=== PATIENT | female | born 1950 | race Caucasian/White ===

== ENCOUNTER 2016-07-29 18:32 | Emergency (ER) | payer MEDICARE ==
[~2016-07-29] VITALS: Ht 156.2 cm; Wt 82.6 kg
[~2016-07-29 18:32] MED LIST: ADVIL 200MG TA200 MG OR; ALPRAZOLAM1 MG PO; ASPIR-LOW81 MG PO; ATIVAN1 M1 PO; BACTRIM DS 8001 TA1 PO; BACTRIM DS 8001 TAB PO; BACTROBAN2% TP; BACTROBAN23 TP; BUPRENORPHINE H1 TA2 SL; CALCIUM GLUCONA50 MG PO; CARVEDILOL6.25 MG PO; CELEXA20 MG PO; CLONAZEPAM0.5 M1 PO; CYMBALTA30 MG PO; FSBS SC; IMDUR 30MG. TAB30 MG PO; INSULIN GL100 UNITS/ SC; INSULIN HUMA100 U/ML SC; KEFLEX 500MG.500 MG PO; KEFLEX500 M1 PO; LISINOPRIL 20MG20 MG PO; LORTAB 5/500 501 TAB PO; METFORMIN 500M500 M1 PO; METFORMIN500 MG PO; NEURONTIN 300M300 MG PO; NICOTINE PATCH;21 MG TD; NORCO 325 MG-51 TAB PO; NOVOLIN 70/30 710 ML SC; OXYCODONE AND A1 TA5 PO; PERCOCET 10 MG1 EACH PO; PERCOCET 325 MG1 TA3 PO; PERCOGESIC EXTR1 TAB PO; PRAVACHOL 40MG40 MG PO; ROZEREM8 MG PO; SEPTRA DS 800 M1 TAB PO; TRAMADOL 50MG T50 MG PO; ULTRAM50 MG PO; VALIUM 5MG TABLE5 MG PO; XANAX 1MG TABLET1 MG PO
--- NOTE | 2016-07-29 18:49 | Emergency Room Report ---
History of Present Illness Time Seen by MD Bauer Presenting Problem in Triage Pt arrived:Walked Presenting Problem:STATES THAT SHE HAS BEEN HAVING ANXIETY ATTACKS LATELY, HER SUGAR IS HIGH. AND SHE HAS SORES ON HER HAND. 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 N Clinical Suspician of Infection? N Mental Status: 1 - Regular (Normal Baseline) Sepsis Risk:Low Sepsis Risk Have you (or family members/close friends) recently traveled outside the [place]? N If Yes, where/when: Have you had exposure to infectious disease within the past month? N TB? Other? Specify: Source patient, RN notes reviewed Exam Limitations no limitations Comment This is a 65-year-old female with a past medical history significant for anxiety , hypertension, hyperlipidemia, diabetes mellitus, coronary artery disease and medication noncompliance who presents to the emergency department for panic attacks. She states that she has them daily and had one today because she constantly worries about her health. She says that her panic attacks make her nervous and she begins picking at her hands causing her to have sores on her hands and forearms. She thinks that her glucose has been elevated as well and complains of increased urinary frequency over the last several days. She does not endorse having any chest pain, shortness of air, lightheadedness, syncope. Of note, she was just discharged from the hospital several days ago. ALLERGIES Coded Allergies: ibuprofen (From MOTRIN) (09/17/15) Home Medications Active Scripts MUPIROCIN 2% (Bactroban Oint) 1 BENNETT TP TID #1 TUBE Prov: 02/19/16 ISOSORBIDE MONONITRATE (IMDUR 30MG) 30 MG PO DAILY 30 Days Prov: 07/24/16 PRAVASTATIN SODIUM (Pravastatin Sodium) 40 MG PO QHS #30 TAB Prov: 02/24/15 Carvedilol (Carvedilol 6.25MG) 6.25 MG PO BID #60 TAB Prov: 02/24/15 Reported Medications INSULIN NPH HUM/REG INSULIN HM (Novolin 70-30 100 Unit/Ml Vial) 40 UNITS SC BID Aspirin (Aspir-Low) 81 MG PO DAILY BUPRENORPHINE HCL/NALOXONE HCL (Buprenorphin-Naloxon 8-2 MG Sl) 1 TAB SL DAILY LISINOPRIL (Lisinopril) 20 MG PO DAILY History Medical History General CAD? Yes Angina: No OK: Yes Hypertension? Yes Hyperlipidemia? Yes CHF? No DVT? No PE? No COPD? Yes Asthma? No Anemia? Yes GERD? Yes Gastric ulcers? No GI Bleed? No Hernia? No Thyroid Problems? Yes Hypothyroidism? Yes CVA? No Seizures? No Diabetes? Yes Insulin Dependent: Yes Insulin Pump: No Home FSBS? Yes Renal Insuffiency? No End Stage Renal Disease? No UTI? Yes Stones? No BPH? No GB Disease: No Nephritic Syndrome? No Asplenia? No Hepatitis? No Sickle Cell Disease? No Arthritis? Yes Migraines? Yes Cataracts? Yes Glaucoma? No MRSA? No HIV? No TB? No Anxiety? Yes Depression? Yes Cancer? No More? Yes Additional hx: X Immunization Hx Ped.Immunizations UTD Yes DT/Tetanus Has Never Had Flu 2016-17FSN Pneumonia Received In Past Surgical Hx Previous Surgery?Y GALLBLADDER Coronary Artery Bypass Family History Family Hx Diabetes Yes CAD Yes Hypertension Yes Hyperlipidemia Yes Cancer Yes TB Yes Social History Smoking Hx Smoker: Never Smoker Tobacco: No Packs/day N/A Are you/the child exposed to second-hand smoke: Yes Alcohol Alcohol: No Review of Systems All Other Systems Reviewed and Negative Physical Exam Vital Signs Vital Signs Date Time Temp Pulse Resp B/P Pulse O2 O2 Flow FiO2 Ox Delivery Rate 07/29 1838 98.5 89 18 114/74 98 General Appearance normal appearance, WD/WN Neck normal inspection, non-tender, supple, full range of motion Respiratory Status Yes: chest symmetrical, non tender chest. No: respiratory distress. Lung Sounds bilateral: normal breath sounds, lungs clear. Cardiovascular normal exam, regular rate/rhythm, no peripheral edema, no gallop, no JVD, no murmur, no rub, normal peripheral pulses Back normal inspection, no CVA tenderness, no vertebral tenderness Extremities non-tender, normal range of motion Neurologic alert, no motor/sensory deficits, oriented x 3 Skin intact, normal color, warm/dry, scars on bilateral hands/wrists with no signs of cellulitis, abscess Medical Decision Making LABS/Meds/Orders Pt receiving controlled substance in ED? No Results/Orders Laboratory Tests 07/29/161909: Sodium 135 L, Potassium 4.5, Chloride 101, Carbon Dioxide 30, BUN 13, Creatinine 0.5 L, Estimated Creat Clear 146, Estimated GFR (MDRD) 124, Glucose 330 H, Calcium 8.5, Total Bilirubin 0.2, AST 5 L, ALT 14, Alkaline Phosphatase 95, Total Protein 7.0, Albumin 2.9 L, Globulin 4.1 H, Albumin/Globulin Ratio 0.7 L, WBC 5.3, RBC 4.05 L, Hgb 10.4 L, Hct 34.3 L, MCV 84.6, RDW 15.4, Plt Count 312, MPV 9.2, Gran % 50.0, Gran # 2.7, Lymphocytes % 39.3, Monocytes % 6.2 , Eosinophils % 3.9, Basophils % 0.6, Lymphocytes # 2.1, Monocytes # 0.3, Eosinophils # 0.2, Basophils # 0.0, PUBS MCHC 30.4 L, MCH 25.7 L, Acetone Level NONE DETECTED 07/29/161848: POC Glucose 389 *H 07/29/161844: Urine Color YELLOW, Urine Appearance CLEAR, Urine pH 6.0, Ur Specific [place] 1.015, Urine Protein NEGATIVE, Urine Ketones NEGATIVE, Urine Blood NEGATIVE, Urine Nitrate NEGATIVE, Urine Bilirubin NEGATIVE, Urine Urobilinogen 0.2, Ur Leukocyte Esterase NEGATIVE, Urine RBC 3-5, Urine WBC 3-5, Ur Squamous Epith Cells 3-5, Urine Bacteria TRACE, Urine Glucose 3+ H Current Medication Orders Sig/Marcia Start time Last Medication Dose Route Stop Time Status Admin Insulin Human Regular 0 .STK-MED ONE 07/29 1902 DC .ROUTE Sodium Chloride 1,000 ML .STK-MED ONE 07/29 1901 DC IV Insulin Human Regular 10 UNITS ONCE ONE 07/29 1899 DC 07/29 IVP 07/29 1900 190 Sodium Chloride 1,000 ML .Q1H1M 07/29 1899 DC 07/29 IV 07/29 Sodium Chloride 10 ML PRN PRN 07/29 1899 AC IV 07/30 1854 Orders Procedure Date/time Status CBC WITH AUTO DIFF 07/29 1855 Complete CHEM 12 PROFILE 07/29 1855 Complete Acetone, Serum 07/29 1855 Complete FINGERSTICK BLOOD SUGAR 07/29 1848 Complete URINALYSIS/COMPLETE 07/29 1842 Complete Departure Departure Disposition DC Home or Self Care(routine) Clinical Impression Primary Impression: Hyperglycemia Secondary Impressions: Anxiety Condition STABLE Referrals Ajay Cooper (Family) Additional Instructions Continue to reassess your blood sugar every 2-3 hours and use sliding scale insulin if needed. Up with your primary care provider in one to 2 days for reevaluation. Return to the emergency department for any acute new concerns. ED Critical Care Critical Care No Comments Patient here with hyperglycemia which may be secondary to her chronic history of noncompliance, though she does state that she took her insulin today as prescribed. She states her baseline is in the 230 range. Her glucose improves from 389 to 307 with a liter of fluids and 10 units of insulin IV. She can continue to improve this at home with her sliding scale insulin. She exhibits no symptoms consistent with DKA. I suspect that her hyperglycemia is likely the source of her increased urinary frequency. Her anxiety is well controlled here and she is not tachycardic or hypertensive. We will discharge her home to follow up outpatient with her primary care provider within 1-2 days. No leukocytosis or fever to suggest infectious etiology of her anxiety. Urinalysis negative for UTI. She does not have any chest pain. at 2004
[2016-07-29 18:54] LABS: URINE BILIRUBIN - DIPSTICK NEGATIVE (NEG); URINE BLOOD NEGATIVE (NEG)
[2016-07-29 19:41] LABS: HEMOGLOBIN 10.4 g/dL (12.2-16.2); LYMPH # 2.1 K/mm3 (0.7-4.5); LYMPH % 39.3 % (10-50.0)
[2016-07-29 19:56] LABS: BUN 13 mg/dL (7-18); GFR (ESTIMATED) 124 ML/MIN (59-)
[2016-07-29 20:30] VITALS: BP 125/79
[2016-09-15] MEDS ORDERED: AUGMENTIN 875-1 EACH PO (20:30)
[2016-09-16] MEDS ORDERED: ZITHROMAX Z-PA250 M2 PO (17:21)
== END 2016-07-29 20:30 | disposition home or self-care (01) ==
LOC: ER 18:32
PROVIDERS: Emergency Medicine
DX: E11.65 Type 2 diabetes mellitus with hyperglycemia (principal); Z79.4 Long term (current) use of insulin; F41.8 Other specified anxiety disorders; I10 Essential (primary) hypertension; J44.9 Chronic obstructive pulmonary disease, unspecified; K21.9 Gastro-esophageal reflux disease without esophagitis

== ENCOUNTER 2016-08-10 16:36 | Emergency (ER) | payer MEDICARE ==
[~2016-08-10] VITALS: Ht 156.2 cm; Wt 81.6 kg
[2016-08-10 17:09] LABS: URINE BILIRUBIN - DIPSTICK NEGATIVE (NEG); URINE BLOOD NEGATIVE (NEG)
--- NOTE | 2016-08-10 17:15 | Emergency Room Report ---
History of Present Illness Time Seen by [id number] Presenting Problem in Triage Pt arrived:Walked Presenting Problem:Pt reports that she fell a couple of days ago and hurt her stomach. Wound noted to pts R abdomen, pt reports that this is a result of falling a couple months ago. Pt reports that she also has severe anxiety and depression. 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 N Clinical Suspician of Infection? N Mental Status: 1 - Regular (Normal Baseline) Sepsis Risk:Low Sepsis Risk Have you (or family members/close friends) recently traveled outside the [place]? N If Yes, where/when: Have you had exposure to infectious disease within the past month? N TB? Other? Specify: Source patient, RN notes reviewed, RN/MD Exam Limitations no limitations Comment This is a 65-year-old female patient well known to me, presenting to the emergency room with multiple and various complaints, including chronic low back pain, hurting "all over", anxiety, dizziness, depression. Patient stated that she has fallen a few months ago and aggravated her low back condition. However she is already on narcotics and she is already seen at the local pain clinic. The patient denies any neurological deficit, any saddle anesthesia, any incontinence. ALLERGIES Coded Allergies: ibuprofen (From MOTRIN) (09/17/15) Home Medications Active Scripts MUPIROCIN 2% (Bactroban Oint) 1 BENNETT TP TID #1 TUBE Prov: 02/19/16 ISOSORBIDE MONONITRATE (IMDUR 30MG) 30 MG PO DAILY 30 Days Prov: 07/24/16 PRAVASTATIN SODIUM (Pravastatin Sodium) 40 MG PO QHS #30 TAB Prov: 02/24/15 Reported Medications Aspirin (Aspir-Low) 81 MG PO DAILY BUPRENORPHINE HCL/NALOXONE HCL (Buprenorphin-Naloxon 8-2 MG Sl) 1 TAB SL DAILY INSULIN NPH HUM/REG INSULIN HM (Novolin 70-30 100 Unit/Ml Vial) 50 UNITS SC BID History Medical History General CAD? Yes Angina: No IN: Yes Hypertension? Yes Hyperlipidemia? Yes CHF? No DVT? No PE? No COPD? Yes Asthma? No Anemia? Yes GERD? Yes Gastric ulcers? No GI Bleed? No Hernia? No Thyroid Problems? Yes Hypothyroidism? Yes CVA? No Seizures? No Diabetes? Yes Insulin Dependent: Yes Insulin Pump: No Home FSBS? Yes Renal Insuffiency? No End Stage Renal Disease? No UTI? Yes Stones? No BPH? No GB Disease: No Nephritic Syndrome? No Asplenia? No Hepatitis? No Sickle Cell Disease? No Arthritis? Yes Migraines? Yes Cataracts? Yes Glaucoma? No MRSA? No HIV? No TB? No Anxiety? Yes Depression? Yes Cancer? No More? No Immunization Hx DT/Tetanus Has Never Had Flu 2016-17FSN Pneumonia Received In Past Surgical Hx Previous Surgery?Y GALLBLADDER Coronary Artery Bypass Family History Family Hx Diabetes Yes CAD Yes Hypertension Yes Hyperlipidemia Yes Cancer Yes TB Yes Social History Smoking Hx Smoker: Never Smoker Tobacco: No Packs/day N/A Alcohol Alcohol: No Review of Systems All Other Systems Reviewed and Negative Musculoskeletal back pain Physical Exam Vital Signs Vital Signs Date Time Temp Pulse Resp B/P Pulse O2 O2 Flow FiO2 Ox Delivery Rate 08/10 1810 97 18 126/77 97 08/10 1802 97 18 126/77 97 08/10 1644 98.1 91 18 155/92 100 General Appearance normal appearance, WD/WN, no apparent distress Respiratory Status Yes: trachea midline, chest symmetrical, non tender chest. No: respiratory distress. Lung Sounds bilateral: normal breath sounds, lungs clear. Cardiovascular normal exam, regular rate/rhythm, no peripheral edema, no gallop, no JVD, no murmur, no rub, normal peripheral pulses Peripheral Pulses Pulses normal Yes Gastrointestinal normal bowel sounds, normal exam, non tender, soft, no organomegaly Back normal inspection, no CVA tenderness, no vertebral tenderness, gait normal, muscle spasm Extremities non-tender, normal range of motion, normal inspection Neurologic alert, vp celebrity services II-XII nml as tested, normal exam, oriented x 3 Mental status normal mood/affect Skin intact, normal color, warm/dry Medical Decision Making LABS/Meds/Orders Pt receiving controlled substance in ED? No Comment Patient's symptoms are chronic in nature, it does not appear that she has any acute medical problem at this time. Patient encouraged to follow-up with the pain clinic as well as her PCP for her other complaints. One Lortab was given to patient prior to her departure. Results/Orders Laboratory Tests 08/10/16 1705: Urine Color STRAW, Urine Appearance CLEAR, Urine pH 6.0, Ur Specific [place] <= 1.005, Urine Protein NEGATIVE, Urine Ketones NEGATIVE, Urine Blood NEGATIVE, Urine Nitrate NEGATIVE, Urine Bilirubin NEGATIVE, Urine Urobilinogen 0.2, Ur Leukocyte Esterase NEGATIVE, Urine WBC OCC, Ur Squamous Epith Cells OCC, Urine Bacteria TRACE, Urine Glucose 3+ H Orders Procedure Date/time Status URINALYSIS/COMPLETE 08/10 170 Complete Departure Departure Time of Disposition 171 Disposition DC Home or Self Care(routine) Clinical Impression Primary Impression: Chronic low back pain Qualifiers: Back pain laterality: unspecified Sciatica presence: without sciatica Qualified Code: M54.5 - Low back pain Condition STABLE Referrals Ajay Cooper (Family): 2 Days-Call Office if not better Patient Instructions DI for Chronic Pain -- Adult Additional Instructions Please follow-up with Dr. Cooper if not better within 2 days. Take all her medications as previously instructed. Discharge Counseling Counseled pt/family regarding diagnosis, medications/RX, home care, follow up needs Comment Please take the medication prescribed as directed, follow-up with Dr. Ajay Cooper within 2 days if not better. ED Critical Care Critical Care No at [phone]
[2016-08-10 17:17] LABS: URINE SQUAMOUS CELLS OCC #/hpf (0-5)
[2016-08-10 18:10] VITALS: BP 126/77
[2016-09-15] MEDS ORDERED: AUGMENTIN 875-1 EACH PO (20:30)
[2016-09-16] MEDS ORDERED: ZITHROMAX Z-PA250 M2 PO (17:21)
== END 2016-08-10 18:09 | disposition home or self-care (01) ==
LOC: ER 16:36
PROVIDERS: Emergency Medicine
DX: M54.5 Low back pain (principal); Z87.39 Personal history of other diseases of the musculoskeletal system and connective tissue; I25.10 Atherosclerotic heart disease of native coronary artery without angina pectoris; I25.2 Old myocardial infarction; E78.5 Hyperlipidemia, unspecified; J44.9 Chronic obstructive pulmonary disease, unspecified; E03.9 Hypothyroidism, unspecified; E11.9 Type 2 diabetes mellitus without complications; Z79.4 Long term (current) use of insulin; M19.90 Unspecified osteoarthritis, unspecified site

== ENCOUNTER → 2016-08-14 | Outpatient (CLI) | payer MEDICARE ==
[~2016-08-14] MED LIST changes: +AUGMENTIN 875-1 EACH PO; +CARDIZEM GENERI30 MG PO; +KLONOPIN1 M2 PO; +LORTAB 5/3251 TAB PO; +ROPINIROLE8 M1 PO; +ZITHROMAX Z PA250 MG PO; +ZITHROMAX Z-PA250 M2 PO
[2016-08-14 16:39] LABS: AMPHETAMINES/METAMPHETAMINES NEGATIVE ng/mL (<1000)
== END ==
LOC: LAB 15:25
PROVIDERS: Emergency Medicine
DX: Z79.899 Other long term (current) drug therapy (principal)

== ENCOUNTER 2016-10-09 01:20 | Inpatient (IN) | payer MEDICARE ==
[2016-10-09] VITALS (11 sets, daily range): BP systolic 97–128; BP diastolic 53–76
[~2016-10-09] VITALS: Ht 156.2 cm; Wt 86.4 kg
[~2016-10-09 01:20] MED LIST changes: -CARDIZEM GENERI30 MG PO; -KLONOPIN1 M2 PO; -LORTAB 5/3251 TAB PO; -ROPINIROLE8 M1 PO; -ZITHROMAX Z PA250 MG PO
--- NOTE | 2016-10-09 01:38 | Emergency Room Report ---
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 N Clinical Suspician of Infection? N Mental Status: 1 - Regular (Normal Baseline) Sepsis Risk:Severe Sepsis Risk Have you (or family members/close friends) recently traveled outside the [place]? N If Yes, where/when: Have you had exposure to infectious disease within the past month? TB? Other? Specify: Source patient, RN notes reviewed, family, old records Exam Limitations no limitations Comment pt with elevated hr over the last few days worse in the last few hrs w/o syncope or chest pain -pt with no hx of a fib and has no neuro sx - she denied any neuro sx and had tried home meds - she had no fever or rash and pt with cough and diaphoresis over the last few days Cardiac Chest Pain Chest pain indicative of cardiac No Timing/Duration this evening Severity moderate ALLERGIES Coded Allergies: ibuprofen (From MOTRIN) (10/09/16) Home Medications Active Scripts ISOSORBIDE MONONITRATE (IMDUR 30MG) 30 MG PO DAILY 30 Days Prov: 07/24/16 PRAVASTATIN SODIUM (Pravastatin Sodium) 40 MG PO QHS #30 TAB Prov: 02/24/15 Reported Medications Aspirin (Aspir-Low) 81 MG PO DAILY INSULIN NPH HUM/REG INSULIN HM (Novolin 70-30 100 Unit/Ml Vial) 50 UNITS SC BID History Medical History General CAD? Yes Angina: No ND: Yes Hypertension? Yes Hyperlipidemia? Yes CHF? No DVT? No PE? No COPD? Yes Asthma? No Anemia? Yes GERD? Yes Gastric ulcers? No GI Bleed? No Hernia? No Thyroid Problems? Yes Hypothyroidism? Yes CVA? No Seizures? No Diabetes? Yes Insulin Dependent: Yes Insulin Pump: No Home FSBS? Yes Renal Insuffiency? No End Stage Renal Disease? No UTI? Yes Stones? No BPH? No GB Disease: No Nephritic Syndrome? No Asplenia? No Hepatitis? No Sickle Cell Disease? No Arthritis? Yes Migraines? Yes Cataracts? Yes Glaucoma? No MRSA? No HIV? No TB? No Anxiety? Yes Depression? Yes Cancer? No More? No Immunization Hx Ped.Immunizations UTD Yes DT/Tetanus Has Never Had Flu 2016-17FSN Pneumonia Received In Past Surgical Hx Previous Surgery?Y GALLBLADDER Coronary Artery Bypass Family History Family Hx Diabetes Yes CAD Yes Hypertension Yes Hyperlipidemia Yes Cancer Yes TB Yes Social History Smoking Hx Smoker: Never Smoker Tobacco: No Type N/A Packs/day N/A Alcohol Alcohol: No Drugs denies Review of Systems All Other Systems Reviewed and Negative Constitutional see HPI, weakness Eyes denies drainage ENT denies: ear discharge, epistaxis, throat pain. Respiratory cough, shortness of breath, denies wheezing Cardiovascular see HPI, denies chest pain, palpitations, denies syncope, other Gastrointestinal denies abdominal pain, denies diarrhea, denies vomiting Genitourinary denies: dysuria, frequency, hesitancy, hematuria. Musculoskeletal denies back pain, denies joint pain, denies joint swelling, denies neck pain Skin denies rash Psychiatric/Neurological denies headache, denies seizure Physical Exam Vital Signs Vital Signs Date Time Temp Pulse Resp B/P Pulse O2 O2 Flow FiO2 Ox Delivery Rate 10/09 0214 102 20 130/82 94 10/09 0122 99.3 198 26 113/68 99 - WBC >12,000 or <4,000 or 10% bands? 2 or more SIRS Criteria Met? B/P:106/38 MAP:83 Creatinine >2.0? UA output<0.5ml/kg/hr for 2 hrs? Platelet count >100,000? Lactate >2.0mmol/1? INR >1.2 or PTT > than 60 sec? Evidence of Organ Dysfunction? Provider documented clinical suspician of infection? N Sepsis Criteria Count: 2 Sepsis Risk: Severe Sepsis Risk General Appearance no apparent distress Eye Exam - bilateral eye PERRL, bilateral eye EOMI Ear, Nose, Throat normal ENT inspection Neck non-tender Respiratory Status No: respiratory distress. Lung Sounds bilateral: decreased breath sounds, rhonchi. 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 No Results/Orders Laboratory Tests 10/09/16131: WBC 14.1 H, RBC 4.61, Hgb 12.0 L, Hct 39.1, MCV 84.8, RDW 15.6, Plt Count 213, MPV 6.6 L, Gran % 83.5 H, Gran # 11.8 H, Lymphocytes % 13.0, Monocytes % 2.6, Eosinophils % 0.6, Basophils % 0.2, Lymphocytes # 1.8, Monocytes # 0.4, Eosinophils # 0.1, Basophils # 0.0, PUBS MCHC 30.8 L, MCH 26.1 L 10/09/16129: TSH 0.55, Thyroxine (T4) 6.4 10/09/16129: Creatine Kinase 76, CK-MB (CK-2) Rel Index 1.2, CK and CKMB Interp 0.9, Troponin I < 0.02 10/09/16129: Sodium 133 L, Potassium 3.8, Chloride 96 L, Carbon Dioxide 23, BUN 13, Creatinine 0.8, Estimated Creat Clear 90, Estimated GFR (MDRD) 72, Glucose 447 H, Calcium 8.8 10/09/16129: B-Natriuretic Peptide Pending Current Medication Orders Sig/Marcia Start time Last Medication Dose Route Stop Time Status Admin Furosemide 40 MG ONCE ONE 10/09 214 DC 10/09 IV 10/09 021 0318 Sodium Chloride 100 ML .STK-MED ONE 10/09 145 DC IV Diltiazem HCl 10 MG ONCE ONE 10/09 144 DC 10/09 IV 10/09 145 014 Diltiazem HCl 100 MG ONCE ONE 10/09 144 AC 10/09 Sodium Chloride 100 ML IV 10/09 1144 0154 Diltiazem HCl 0 .STK-MED ONE 10/09 144 DC IV Aspirin 0 .STK-MED ONE 10/10 139 DCr .ROUTE Diltiazem HCl 0 .STK-MED ONE 10/10 139 DC IV Adenosine 0 .STK-MED ONE 10/09 129 DC IV Sodium Chloride 1,000 ML .STK-MED ONE 10/09 129 DC IV Orders Procedure Date/time Status DIET-NOTHING BY MOUTH 10/09 B Active CULTURE, BLOOD 10/09 244 Active LACTIC ACID 10/[address] CHEST W/O CONTRAST 10/[address] SCAN REQ 10/09 212 Complete BRAIN NATRIURETIC PEPTIDE 10/09 212 Active URINALYSIS/COMPLETE 10/09 141 Active THYROID STIMULATING HORMONE 10/09 141 Complete THYROXINE (T4) 10/09 141 Complete DRUG ABUSE SCREEN (TRIAGE) 10/09 141 Active CARDIAC ENZYMES 10/09 132 Complete 12 LEAD EKG-BESSON (INITIAL) 10/10 131 Active ELECTROCARDIOGRAM REQUEST 10/10 131 Active CHEST-PORTABLE 10/10 131 Active CBC WITH AUTO DIFF 10/10 131 Complete BASIC METABOLIC PROFILE 10/10 131 Complete CM/EKG CM/EKG 1 Monitor Rhythm Atrial Flutter EKG ST depression CM/EKG 2 Monitor Rhythm Sinus Tachycardia EKG compared w/(date of old), non-spec. ST/Twave chgs XRAY/CT/US XRAY/CT/US 1 XRAY chest XR interpretation by reviewed by me Xray Results abnormal (cm/cap) XRAY/CT/US [address] interpretation by discussed w/radiologist Time results known: 336 CT Results abnormal (cap) Departure Departure Time of Disposition 0245 Disposition Still a Patient Clinical Impression Primary Impression: Cardiac arrhythmia Qualifiers: Arrhythmia type: unspecified cardiac arrhythmia Qualified Code: I49.9 - Cardiac arrhythmia, unspecified Secondary Impressions: CAP (community acquired pneumonia) Diabetes mellitus Qualifiers: Diabetes mellitus type: type 1 Diabetes mellitus complication status: with unspecified complications Qualified Code: E10.8 - Type 1 diabetes mellitus with unspecified complications Condition STABLE Referrals Dixie CANALES,Genaro Win (Family) ED Critical Care Critical Care No at 0337
[2016-10-09 01:42] LABS: LYMPH # 1.8 K/mm3 (0.7-4.5)
[2016-10-09] MEDS ORDERED: KLONOPIN1 M2 PO (05:11)
[2016-10-09] MEDS ORDERED: LORTAB 5/3251 TAB PO (05:12)
[2016-10-09] MEDS ORDERED: ROPINIROLE8 M1 PO (05:14)
--- NOTE | 2016-10-09 07:37 | PHARMACY CLINIC NOTE ---
Patient Demographics Patient Demographics Admission date: 10/09/16 Date: 10/09/16 Time: 0736 Allergies Coded Allergies: ibuprofen (From MOTRIN) (10/09/16) HEIGHT- FT: 5 IN: 1.50 K.410 VTE General Information Labs: Laboratory Tests 10/09 0132 Hematology Hgb (12.2 - 16.2 g/dL) 12.0 L Hct (37.0 - 47.0 %) 39.1 Plt Count (142 - 424 K/mm3) 213 Disclaimer The following section includes nursing documentation that has been pulled in for pharmacy review. Patient's VTE score: 2 Patient's VTE Risk: VERY LOW RISK Clinical trial participant? No VTE prophylaxis NQF [id number] VTE prophylaxis ordered? Yes Type of prophylaxis/treatment: SANJANA at 0736
--- NOTE | 2016-10-09 08:23 | RADIOLOGY REPORT PS360 ---
CHEST-PORTABLE HISTORY: CHEST PAIN ORDERING PHYSICIAN: Genaro Colin MD PATIENT AGE: 65 years COMPARISON: 09/16/2016 FINDINGS: Mild cardiomegaly. Prior median sternotomy.. Worsening opacification noted in the right upper and right lower lobe consistent with worsening right-sided pneumonia. Patchy infiltrate also present in the left perihilar region and left lower lobe.. No acute bony abnormalities. IMPRESSION: Bilateral pneumonia. Worsening right-sided pneumonia now in the right upper and right lower lobe with also patchy infiltrate in the left mid and left lower lobe.
--- NOTE | 2016-10-09 08:47 | HISTORY AND PHYSICAL REPORT ---
Demographics: Admit date: 10/09/16 Chief complaint: cardiac arrhythmia PRIMARY DIAGNOSIS: CARDIAC ARRHYTHMIAS Allergies: Coded Allergies: ibuprofen (From MOTRIN) (10/09/16) History of present illness: History of present illness: 65-year-old female presented to the ER with chest pain that radiated into her back. Patient states it felt like the pain when she had her bypass surgery. Patient states over the last couple days she's noticed her heart rate being fast. Had been taken medicine she had at home with no improvement. Endy presented to the ER and a rapid atrial flutter rate around 200. Placed on a cardio seem drip and converted to normal sinus rhythm with a rate of 90. Chest x -ray also showed a pneumonia. Patient admitted for cardiac monitoring, IV antibiotics for the pneumonia and a cardiology consult for the atrial flutter. Past medical history: Family HX Diabetes Yes CAD Yes Hypertension Yes Hyperlipidemia Yes Cancer Yes TB Yes Immunization HX Ped.Immunizations UTD Yes DT/Tetanus 5-10 Years Ago Flu 2015-FSN Pneumonia Received In Past TB Test in last year No General CAD? Yes Angina: No [place]: Yes Hypertension? Yes Hyperlipidemia? Yes CHF? No DVT? No PE? No COPD? Yes Asthma? No Anemia? Yes GERD? Yes Gastric ulcers? No GI Bleed? No Hernia? No Thyroid Problems? Yes Hypothyroidism? Yes CVA? No Seizures? No Diabetes? Yes Insulin Dependent: Yes Insulin Pump: No Home FSBS? Yes Renal Insuffiency? No UTI? Yes Stones? No BPH? No GB Disease: No Nephritic Syndrome? No Asplenia? No Hepatitis? No Sickle Cell Disease? No Arthritis? Yes Migraines? Yes Cataracts? Yes Glaucoma? No MRSA? No HIV? No TB? No Anxiety? Yes Depression? Yes Cancer? No More? No Past Surgical HX Previous Surgery?Y GALLBLADDER Coronary Artery Bypass Current home meds: Active Scripts ISOSORBIDE MONONITRATE (IMDUR 30MG) 30 MG PO DAILY 30 Days Prov: 07/24/16 PRAVASTATIN SODIUM (Pravastatin Sodium) 40 MG PO QHS #30 TAB Prov: 02/24/15 Reported Medications Aspirin (Aspir-Low) 81 MG PO DAILY Clonazepam (Klonopin) 1 MG PO BID HYDROCODONE/ACETAMINOPHEN (Lortab 5-325 MG Tablet) 1 TAB PO Q6HP PRN PAIN ROPINIROLE HCL (Ropinirole) 8 MG PO BIDP PRN NERVE DAMAGE IN LEGS INSULIN NPH HUM/REG INSULIN HM (Novolin 70-30 100 Unit/Ml Vial) 50 UNITS SC BID Social Hx: Smoking HX Tobacco No Type N/A Packs/day N/A Alcohol Alcohol: No Hx of Drug Use Drug Use? No Review of systems: Constitutional No: no symptoms reported, see HPI, chills, diaphoresis, fever, malaise, weakness , other. Eyes No: no symptoms reported. Ears, Nose, Mouth, Throat No no symptoms reported Respiratory see HPI, shortness of breath, SOB with excertion, SOB at rest. Cardiovascular see HPI, palpitations Gastrointestinal/Abdominal No no symptoms reported, No see HPI, No abdomen distended, No abdominal pain, No blood streaked bowels, No constipated, No diarrhea, No difficulty swallowing, No nausea, No poor appetite, No poor fluid intake, No rectal bleeding, No vomiting, No other Genitourinary No: no symptoms reported, see HPI, discharge, abnormal vaginal bleeding, normal menstrual period, vaginal discharge, dysuria, frequency, hesitancy, hematuria, dyspareunia, pain, penis pain, pelvic pain, scrotal/testicular pain, hx stds, genital lesions, other, , labia tenderness, penis tenderness, scrotal tenderness. Musculoskeletal No: no symptoms reported, see HPI, back pain, gout, joint pain, joint swelling, muscle pain, muscle stiffness, neck pain, other. Skin No: no symptoms reported, see HPI, change in color, change in hair/nails, dryness, lesions, lumps, rash, other. Neurological Yes: weakness. Psychiatric No: no symptoms reported. Exam: Lab data for last 24 hours: Laboratory Tests 10/09/16 0740: Lactic Acid 2.5 H 10/09/16 0648: POC Glucose 288 H 10/09/16 0555: Creatine Kinase 86, CK-MB (CK-2) Rel Index 1.4, CK and CKMB Interp 1.2, Troponin I 0.31 H 10/09/16 0310: Lactic Acid 2.2 H 10/09/16 0132: WBC 14.1 H, RBC 4.61, Hgb 12.0 L, Hct 39.1, MCV 84.8, RDW 15.6, Plt Count 213, MPV 6.6 L, Gran % 83.5 H, Gran # 11.8 H, Lymphocytes % 13.0, Monocytes % 2.6, Eosinophils % 0.6, Basophils % 0.2, Lymphocytes # 1.8, Monocytes # 0.4, Eosinophils # 0.1, Basophils # 0.0, PUBS MCHC 30.8 L, MCH 26.1 L 10/09/16129: TSH 0.55, Thyroxine (T4) 6.4 10/09/16 0130: Creatine Kinase 76, CK-MB (CK-2) Rel Index 1.2, CK and CKMB Interp 0.9, Troponin I < 0.02 10/09/16129: Sodium 133 L, Potassium 3.8, Chloride 96 L, Carbon Dioxide 23, BUN 13, Creatinine 0.8, Estimated Creat Clear 90, Estimated GFR (MDRD) 72, Glucose 447 H, Calcium 8.8 10/09/160: B-Natriuretic Peptide 267 H, Mycoplasma pneumon IgM NON-REACTIVE Microbiology 10/09 309 BLOOD: Anaerobic Blood Culture - RECD 10/09 309 BLOOD: Aerobic Blood Culture - RECD 10/09 309 BLOOD: Anaerobic Blood Culture - RECD 10/09 309 BLOOD: Aerobic Blood Culture - RECD Admission vital signs: 1ST Vital Signs Result Date Time Pulse Ox 99 10/09 121 B/P 113/68 10/09 121 Temp 99.3 10/09 121 Pulse 198 10/09 121 Resp 26 10/09 121 O2 Delivery ROOM AIR 10/09 0416 Exam General appearance: normal appearance, active, no acute distress Eyes: normal exam ENT: normal exam Neck: normal inspection, full range of motion Cardiovascular: normal exam, regular rate & rhythm, normal peripheral pulses Respiratory: normal exam, good air movement ABD: normal exam, soft Genitourinary: normal voiding & quantity Extremities: normal exam, warm Musculoskeletal: normal exam Skin: normal exam, intact, warm Neuro: normal exam, alert, intact, oriented Plan: Problem List 1. Cardiac arrhythmia 2. Pneumonia 3. Back pain 4. Atrial flutter Plan: Cardiology consult for a flutter and increased troponin. IV antibiotics for pneumonia.
--- NOTE | 2016-10-09 10:12 | RADIOLOGY REPORT PS360 ---
CT CHEST W/O CONTRAST HISTORY: Shortness of air, abnormal radiograph. Worsening pneumonia SOA ORDERING PHYSICIAN: Genaro Colin MD PATIENT AGE: 65 years TECHNIQUE: Helical acquisition obtainedwithout contrast. Axial, sagittal, and coronal reformatted images are generated and reviewed. COMPARISON: X-ray of 10/09/2016 FINDINGS: There is cardiomegaly. There has been a prior median sternotomy. Severe mitral valve annular calcification is present and severe coronary artery calcification is noted. The main pulmonary artery is prominent at 3.7 cm slightly larger than the aorta. No obvious pericardial effusion. No aortic aneurysm. Four-chamber cardiac enlargement. There is diffuse central alveolar opacification of the right upper and right lower lobe consistent with right-sided pneumonia. There are mild atelectatic changes of left. There is some mild left perihilar opacification not nearly as extensive as the right side. No obvious mediastinal or hilar adenopathy or mass. Upper abdominal images are unremarkable. IMPRESSION: 1. Severe right upper and right lower lobe pneumonia. 2. Mild left perihilar opacification/pneumonia. 3. Four-chamber cardiac enlargement with severe coronary artery and mitral valve annular calcification along with mild prominence of the main pulmonary artery
[2016-10-10] VITALS (8 sets, daily range): BP systolic 93–136; BP diastolic 48–72
[2016-10-10 07:43] LABS: HEMOGLOBIN 10.8 g/dL (12.2-16.2); LYMPH # 1.9 K/mm3 (0.7-4.5); LYMPH % 17.4 % (10-50.0)
--- NOTE | 2016-10-10 11:22 | ACUTE CARE PROGRESS NOTE (QUA) ---
Progress Notes Subjective Date 10/10/16 Time 0800 Patient/family reports: feeling better, pain Nursing reports: alert Objective Findings Last VS-Temp:98.9 B/P:103/48 Pulse:91 Resp:18 SaO2:98 OXYGEN Last weight lbs:190 oz:8 K.410 Method:Bed Scales Exam General appearance: normal appearance, alert, active, awake, no acute distress Eyes: normal exam ENT: normal exam Neck: normal inspection, full range of motion Cardiovascular: normal exam, normal sinus rhythm Respiratory: diminished breath sounds, rhonchi, wheezing ABD: normal exam, soft Genitourinary: normal voiding & quantity Extremities: normal exam, moves all Musculoskeletal: normal exam Skin: normal exam, normal color, warm Neuro: normal exam, alert Reviewed: allergies, medications, vital signs, lab results, radiology report Assessment/Plan Problem List 1. Cardiac arrhythmia Qualifiers: Arrhythmia type: unspecified cardiac arrhythmia Qualified Code: I49.9 - Cardiac arrhythmia, unspecified 2. Pneumonia 3. Back pain 4. Atrial flutter Patient condition Stable Plan: continue current care This inpt stay is expected to cross 2 MNs from start of care Yes Comments: Discussed patient with Dr. Colin he will be in later today to see patient waiting consult from [facility] (2) Current Culture Results Microbiology 10/09 309 BLOOD: Anaerobic Blood Culture - RECD 10/09 309 BLOOD: Aerobic Blood Culture - RECD at 1121
[2016-10-11] VITALS (7 sets, daily range): BP systolic 98–121; BP diastolic 51–76
--- NOTE | 2016-10-11 12:00 | ACUTE CARE PROGRESS NOTE (QUA) ---
Progress Notes Subjective Date 10/11/16 Time 1158 Patient/family reports: feeling better, no complaints Nursing reports: alert Objective Findings Last VS-Temp:99.9 B/P:110/55 Pulse:89 Resp:20 SaO2:97 OXYGEN Last weight lbs:190 oz:8 K.410 Method:Bed Scales Exam General appearance: normal appearance, alert, active, awake Eyes: normal exam ENT: normal exam Neck: normal inspection Cardiovascular: regular rate & rhythm Respiratory: normal exam, diminished breath sounds, wheezing ABD: normal exam, soft Genitourinary: normal voiding & quantity Extremities: normal exam, full range of motion Musculoskeletal: normal exam Skin: normal exam, intact, warm Neuro: normal exam, alert, intact, oriented Reviewed: allergies, medications, vital signs, lab results Assessment/Plan Problem List 1. Cardiac arrhythmia Qualifiers: Arrhythmia type: unspecified cardiac arrhythmia Qualified Code: I49.9 - Cardiac arrhythmia, unspecified 2. Pneumonia 3. Back pain 4. Atrial flutter Patient condition Stable Plan: continue current care This inpt stay is expected to cross 2 MNs from start of care Yes Comments: Waiting for blood culture results, possible discharge tomorrow, this patient with Dixie he will be in later today to see patient at 1200
[2016-10-12] VITALS (12 sets, daily range): BP systolic 113–134; BP diastolic 63–82
[2016-10-12 01:38] LABS: AMPHETAMINES/METAMPHETAMINES NEGATIVE ng/mL (<1000)
[2016-10-12 07:03] LABS: LYMPH # 1.5 K/mm3 (0.7-4.5); LYMPH % 17.2 % (10-50.0)
[2016-10-12 07:04] LABS: HEMOGLOBIN 9.3 g/dL (12.2-16.2)
--- NOTE | 2016-10-12 07:45 | CONSULT NOTE ---
See Addendum Standard Demographics Patient Demo Date of Consultation: 10/12/16 Referring Provider: Marleen Colin MD Reason for Consultation: A. Fib with RVR, NSTEMI PRIMARY DIAGNOSIS: CARDIAC ARRHYTHMIAS Problem list Problem list: 1. CAD A. CABG, B. Cardiac cath, 03/2015, EF 75-80% with adequate revascularization. 50 percent LEFT subclavian artery stenosis noted. C. Cardiac catheterization, February/2016, Severe [place] coronary artery disease, Patent HERNANDEZ to diagonal artery which then has severe disease in the diagonal artery which backfills in LAD, Patent saphenous vein graft to the first obtuse marginal artery skipping to the second obtuse marginal artery then skipping to the posterior descending artery, Normal ejection fraction, Mild to moderately elevated LVEDP. If patient has recalcitrant angina, then consider repeat LAD angiography using a perfusion balloon with interventional backup. D. Stress test, 06/2016, EF 52% with ischemia in the apex and anteroseptal faye. Mildly enlarged RIGHT ventricle with normal contractility. 2. Diabetes mellitus, poorly controlled, treated for >40 yrs A. Hemoglobin A1c of 12.9, 09/2016 3. COPD despite no tobacco use. History of secondhand tobacco exposure. 4. GERD 5. Obesity. 6. History of medication noncompliance History of present illness: History of present illness: 65-year-old female presented to the ER with chest pain that radiated into her back. Patient states it felt like the pain when she had her bypass surgery. Patient states over the last couple days she's noticed her heart rate being fast. Had been taken medicine she had at home with no improvement. Patient presented to the ER and a rapid heart rate around 200 bpm. Placed on a cardizem drip and converted to normal sinus rhythm with a rate of 90. Chest x-ray also showed a pneumonia. Patient admitted for cardiac monitoring, IV antibiotics for the pneumonia and a cardiology consult for the atrial flutter. The above per GUZMAN Baca. Patient relates some intermittent palpitations, shortness of breath and chest pain with radiation to the back and the LEFT arm prior to admission. Since some patient converted back to sinus rhythm on Cardizem drip she has had brief episodes of chest discomfort associated with palpitations and heart rates in the low 100s. Neck enzymes on admission noted to be elevated with initial electrocardiogram showing an atrial tachycardia of about 196 bpm likely atrial fibrillation. Patient was seen in the office in July of this year at which time she related she had been out of her cardiac medications. However, at this time the patient states she has been taking her medications prior to admission. Cardiology consulted for atrial fibrillation and elevated cardiac enzymes. Past Medical History: General: Hypertension Yes CVA No Seizures No TB No COPD Yes Asthma No Diabetes Yes Insulin Dependent Yes Insulin Pump No Angina No PA Yes Hyperlipidemia Yes Urinary Yes Cancer No Rheumatic H.D. No Ulcers No MRSA No GB Disease No Other DEPRESSION, ANXIETY Past Surgical HX: Previous Surgery?Y GALLBLADDER Coronary Artery Bypass Allergies Coded Allergies: ibuprofen (From MOTRIN) (10/09/16) Home medications: Active Scripts ISOSORBIDE MONONITRATE (IMDUR 30MG) 30 MG PO DAILY 30 Days Prov: 07/24/16 PRAVASTATIN SODIUM (Pravastatin Sodium) 40 MG PO QHS #30 TAB Prov: 02/24/15 Reported Medications Aspirin (Aspir-Low) 81 MG PO DAILY Clonazepam (Klonopin) 1 MG PO BID HYDROCODONE/ACETAMINOPHEN (Lortab 5-325 MG Tablet) 1 TAB PO Q6HP PRN PAIN ROPINIROLE HCL (Ropinirole) 8 MG PO BIDP PRN NERVE DAMAGE IN LEGS INSULIN NPH HUM/REG INSULIN HM (Novolin 70-30 100 Unit/Ml Vial) 50 UNITS SC BID Current Medications: Current Medications Insulin Human [rDNA origin] 0 .STK-MED ONE SC (DC) Acetaminophen/Codeine Phosphate 0 .STK-MED ONE PO (DC) Insulin Human [rDNA origin] 0 .STK-MED ONE SC (DC) Ondansetron HCl 0 .STK-MED ONE .ROUTE (DC) Acetaminophen/Codeine Phosphate 0 .STK-MED ONE PO (DC) Ondansetron HCl 0 .STK-MED ONE .ROUTE (DC) Acetaminophen/Codeine Phosphate 0 .STK-MED ONE PO (DC) Sodium Chloride 1,000 ML .STK-MED ONE IV (DC) Acetaminophen 0 .STK-MED ONE PO (DC) Insulin Human [rDNA origin] 0 .STK-MED ONE SC (DC) Acetaminophen/Codeine Phosphate 0 .STK-MED ONE PO (DC) Insulin Human [rDNA origin] 0 .STK-MED ONE SC (DC) Ceftriaxone Sodium 1 GM 1300 IV Sodium Chloride 50 ML Aspirin 81 MG DAILY PO Isosorbide Mononitrate 30 MG DAILY PO Polyethylene Glycol 17 GM DAILY PO Sodium Chloride 1,000 ML .Q20H IV Azithromycin 500 MG 2100 IV Sodium Chloride 250 ML Diagnostic Test (Pha) 1 EACH W/MEALS&HS FS Diltiazem HCl 30 MG BID PO Insulin Human [rDNA origin] SEE ADMIN CRITERIA FOR HI INTENSITY SS W/MEALS&HS SC Pravastatin Sodium 40 MG QHS PO Acetaminophen 650 MG Q4HP PRN PO Acetaminophen/Codeine Phosphate 1 EACH Q4HP PRN PO Ondansetron HCl 4 MG Q6HP PRN IV Immunization HX Ped.Immunizations UTD Yes DT/Tetanus 5-10 Years Flu 2015-FSN Pneumonia RECEIVED IN PAST TB Test in last year No Family history Family HX Family Hx Insignificant No Diabetes Yes CAD Yes Hypertension Yes Hyperlipidemia Yes Cancer Yes TB Yes Social Hx: Smoking HX Tobacco No Type N/A Packs/day N/A Alcohol Alcohol: No Hx of Drug Use Drug Use? No Patien't marital status is single Patient's support system is fair Review of systems: Constitutional malaise, weakness. Respiratory see HPI, cough, orthopnea, shortness of breath, SOB with excertion, SOB at rest. Cardiovascular see HPI, chest pain, palpitations Gastrointestinal/Abdominal nausea, vomiting Genitourinary No: no symptoms reported. Musculoskeletal see HPI, back pain. Neurological No: no symptoms reported. Exam: Admission Vital Signs: 1ST Vital Signs Result Date Time Pulse Ox 99 10/09 0122 B/P 113/68 10/09 121 Temp 99.3 10/09 012 Pulse 198 10/09 0122 Resp 26 10/09 0122 O2 Delivery ROOM AIR 10/09 0416 O2 Flow Rate 2 10/09 2099 Last Vital Signs: Vital Signs Result Date Time O2 Flow Rate 2 10/12 0645 Resp 18 10/12 0603 Pulse Ox 95 10/12 0357 B/P 115/63 10/12 0357 O2 Delivery OXYGEN 10/12 035 Temp 99.5 10/12 035 Pulse 93 10/12 0357 Exam General appearance: alert, awake, no acute distress Neck: no carotid bruit, no JVD Cardiovascular: regular rate and rhythm with controlled ventricular response. Patient has mixed cardiac murmurs both in the aortic and mitral areas consistent with mitral and aortic stenosis. Some diastolic Murmurs noted consistent with valvular insufficiency. Respiratory: decreased breath sounds RIGHT greater than LEFT with some crackles noted on the RIGHT side. No wheezing at this time. ABD: soft, no tenderness Extremities: moves all, trace pretibial edema noted Neuro: alert, intact, oriented, speech clear Laboratory data: Laboratory Tests 10/12/16 0645: Sodium 139, Potassium 4.2, Chloride 103, Carbon Dioxide 28, BUN 9, Creatinine 0.6, Estimated Creat Clear 128, Estimated GFR (MDRD) 100, Glucose 248 H, Calcium 8.5, Total Bilirubin 0.5, AST 31, ALT 24, Alkaline Phosphatase 172 H, Total Protein 6.4, Albumin 2.1 L, Globulin 4.3 H, Albumin/Globulin Ratio 0.5 L, WBC 8.4, RBC 3.54 L, Hgb 9.3 L, Hct 29.2 L, MCV 82.5, RDW 15.8, Plt Count 209, MPV 6.7 L, Gran % 76.4, Gran # 6.4, Lymphocytes % 17.2, Monocytes % 3.3, Eosinophils % 2.9, Basophils % 0.2, Lymphocytes # 1.5, Monocytes # 0.3, Eosinophils # 0.2, Basophils # 0.0, PUBS MCHC 32.4, MCH 26.8 L 10/12/16 0604: POC Glucose 256 H 10/12/16 0120: Opiates Screen POSITIVE H, Urine Methadone Screen NEGATIVE, Barbiturates NEGATIVE, Phencyclidine Screen NEGATIVE, Amphetamines Screen NEGATIVE, Benzodiazepines Screen POSITIVE H, Cocaine Screen NEGATIVE, Marijuana (THC) Screen NEGATIVE 10/11/16 2025: POC Glucose 237 H 10/11/16 1628: POC Glucose 277 H 10/11/16 1125: POC Glucose 264 H 10/11/16 0627: POC Glucose 187 H 10/10/16 2349: POC Glucose 210 H 10/10/16 2005: POC Glucose 258 H 10/10/16 1151: POC Glucose 149 H 10/10/16 0640: Sodium 139, Potassium 3.7, Chloride 102, Carbon Dioxide 27, BUN 13, Creatinine 0.6, Estimated Creat Clear 128, Estimated GFR (MDRD) 100, Glucose 182 H, Calcium 8.3 L, WBC 10.7, RBC 4.09 L, Hgb 10.8 L, Hct 33.5 L, MCV 81.8 L, RDW 16.1, Plt Count 193, MPV 6.6 L, Gran % 76.2, Gran # 8.2 H, Lymphocytes % 17.4, Monocytes % 3.6, Eosinophils % 2.6, Basophils % 0.1, Lymphocytes # 1.9, Monocytes # 0.4, Eosinophils # 0.3, Basophils # 0.0, PUBS MCHC 32.2, MCH 26.4 L 10/10/16 0637: POC Glucose 168 H 10/09/16 2035: POC Glucose 153 H 10/09/16 1706: POC Glucose 257 H 10/09/16 1157: POC Glucose 153 H 10/09/16 0740: Lactic Acid 2.5 H 10/09/16 0740: Creatine Kinase 68, CK-MB (CK-2) Rel Index 1.5, CK and CKMB Interp 1.0, Troponin I 0.44 H Plan: Assessment: 1. Atrial fibrillation with a rapid ventricular response, converted to sinus rhythm after institution of Cardizem drip. Maintaining sinus rhythm on by mouth Cardizem. 2. Elevated troponins consistent with non-STEMI likely secondary to demand ischemia from pneumonia and atrial for ablation with a rapid ventricular response. Patient with known abnormal stress test earlier this year in the apex and anteroseptal areas. Will proceed with cardiac catheterization and further recommendations. 3. Diabetes mellitus, poorly controlled 4. Coronary disease with previous cardiac cath in February 2016, results noted above. . 5. Anemia, hemoglobin dropped from 12-9.3 g/dL during this hospitalization. 6. Chronic obstructive pulmonary disease with right-sided pneumonia. Recommendations: Discussed with Dr. Celis. See above. at 0180
--- NOTE | 2016-10-12 09:00 | ACUTE CARE PROGRESS NOTE (QUA) ---
Progress Notes Subjective Date 10/12/16 Time 0858 Patient/family reports: feeling better, shortness of breath Nursing reports: alert Objective Findings Last VS-Temp:98.3 B/P:127/73 Pulse:100 Resp:18 SaO2:96 OXYGEN Last weight lbs:190 oz:8 K.410 Method:Bed Scales Exam General appearance: normal appearance, alert, awake, no acute distress Eyes: normal exam ENT: normal exam Neck: normal inspection, full range of motion Cardiovascular: regular rate & rhythm, murmur Respiratory: normal exam, clear to auscultation, good air movement, on oxygen ABD: normal exam, soft Genitourinary: normal voiding & quantity Extremities: normal exam, full range of motion, warm Musculoskeletal: normal exam Skin: normal exam, intact, warm Neuro: normal exam, alert, intact, oriented Reviewed: allergies, medications, vital signs, lab results, consult note Assessment/Plan Problem List 1. Cardiac arrhythmia Qualifiers: Arrhythmia type: unspecified cardiac arrhythmia Qualified Code: I49.9 - Cardiac arrhythmia, unspecified 2. Pneumonia 3. Back pain 4. Atrial flutter Patient condition Stable Plan: order additional tests This inpt stay is expected to cross 2 MNs from start of care Yes Comments: Repeat chest x-ray. Cardiology for heart cath today. Possible discharge later today.rounded with roxana at 0900
--- NOTE | 2016-10-12 12:10 | RADIOLOGY REPORT PS360 ---
CARDIAC CATHETERIZATION DATE OF CATHETERIZATION:10/12/2016 11:09 AM PROCEDURES: 1. Left heart catheterization 2. Left ventriculogram 3. Selective coronary angiogram 4. Selective engagement of the left internal mammary artery to the first diagonal artery 5. Selective engagement of the saphenous vein graft to the diagonal artery obtuse marginal artery and then skipping to the right coronary arteries posterior descending artery INDICATION FOR TEST: 1. Acute non-ST elevation myocardial infarction 2. Coronary artery disease 3. History of coronary bypass grafting Informed consent was obtained prior to the procedure. COMPLICATIONS: None ESTIMATED BLOOD LOSS: Less than 10 ml. TECHNIQUE: One percent lidocaine was used to anesthetize the right groin. The right femoral artery was accessed via the Seldinger technique. A 4-[place] sheath was placed in the right femoral artery. The JL-4 JR4 and multipurpose catheter were used to perform left heart catheterization left ventriculogram and selective coronary angiography. The JR4 catheter was used to cannulate the saphenous vein graft making its 3 anastomoses onto the diagonal artery and the obtuse marginal artery then over to the posterior descending artery. The JR4 catheter was also used intubate the left internal mammary artery and perform angiography. Multipurpose catheter was used to perform cannulation of the anterior vertical takeoff of the [place] right coronary ANGIOGRAPHIC RESULTS: 1. The left main artery normal 2. The left anterior descending artery proximally has long tubular 70-80% stenosis then subtotally occluded at mid segment. There is evidence of competitive flow from the bypass grafting 3. The circumflex artery is nondominant and gives rise to 5 obtuse marginal arteries. Competitive flow is identified in at least one of the obtuse marginal arteries. There is diffuse disease with a 70% stenosis in the fourth obtuse marginal artery. This vessel is 2 mm in diameter at the stenotic area 4. The right coronary artery is a dominant vessel with an anterior takeoff which has proximal 40% stenoses followed by mid vessel 60% stenosis then occluded distally 5. The [place] ventriculogram reveals normal 65% 6. The left ventricular end-diastolic pressure 18 mmHg 7. The left internal mammary arteries are patent graft to the diagonal artery. There is little visualization of backfilling of the [place] LAD 8. The saphenous vein graft to the coronary vasculature is widely patent from the aorta to the diagonal artery and then skips to the fourth obtuse marginal artery which also has a widely patent limb and then skips to the right coronary arteries posterior descending artery which is also widely patent IMPRESSION: 1. Acute non-ST elevation myocardial infarction stemming from demand ischemia related to tachyarrhythmia 2. Normal ejection fraction 3. Adequate coronary artery revascularization as described above 4. Elevated LVEDP PLAN: 1. Treatment of paroxysmal atrial fibrillation 2. Risk factor modification 3. Anticoagulation 4. Aggressive rate controlling medicines and in order to avoid the tachyarrhythmia which is associated with demand ischemia and subsequent non-ST elevation myocardial infarction
--- NOTE | 2016-10-12 12:10 | RADIOLOGY REPORT PS360 ---
CARDIAC CATHETERIZATION DATE OF CATHETERIZATION:10/12/2016 11:09 AM PROCEDURES: 1. Left heart catheterization 2. Left ventriculogram 3. Selective coronary angiogram 4. Selective engagement of the left internal mammary artery to the first diagonal artery 5. Selective engagement of the saphenous vein graft to the diagonal artery obtuse marginal artery and then skipping to the right coronary arteries posterior descending artery INDICATION FOR TEST: 1. Acute non-ST elevation myocardial infarction 2. Coronary artery disease 3. History of coronary bypass grafting Informed consent was obtained prior to the procedure. COMPLICATIONS: None ESTIMATED BLOOD LOSS: Less than 10 ml. TECHNIQUE: One percent lidocaine was used to anesthetize the right groin. The right femoral artery was accessed via the Seldinger technique. A 4-Palestinian sheath was placed in the right femoral artery. The JL-4 JR4 and multipurpose catheter were used to perform left heart catheterization left ventriculogram and selective coronary angiography. The JR4 catheter was used to cannulate the saphenous vein graft making its 3 anastomoses onto the diagonal artery and the obtuse marginal artery then over to the posterior descending artery. The JR4 catheter was also used intubate the left internal mammary artery and perform angiography. Multipurpose catheter was used to perform cannulation of the anterior vertical takeoff of the [place] right coronary ANGIOGRAPHIC RESULTS: 1. The left main artery normal 2. The left anterior descending artery proximally has long tubular 70-80% stenosis then subtotally occluded at mid segment. There is evidence of competitive flow from the bypass grafting 3. The circumflex artery is nondominant and gives rise to 5 obtuse marginal arteries. Competitive flow is identified in at least one of the obtuse marginal arteries. There is diffuse disease with a 70% stenosis in the fourth obtuse marginal artery. This vessel is 2 mm in diameter at the stenotic area 4. The right coronary artery is a dominant vessel with an anterior takeoff which has proximal 40% stenoses followed by mid vessel 60% stenosis then occluded distally 5. The [place] ventriculogram reveals normal 65% 6. The left ventricular end-diastolic pressure 18 mmHg 7. The left internal mammary arteries are patent graft to the diagonal artery. There is little visualization of backfilling of the [place] LAD 8. The saphenous vein graft to the coronary vasculature is widely patent from the aorta to the diagonal artery and then skips to the fourth obtuse marginal artery which also has a widely patent limb and then skips to the right coronary arteries posterior descending artery which is also widely patent IMPRESSION: 1. Acute non-ST elevation myocardial infarction stemming from demand ischemia related to tachyarrhythmia 2. Normal ejection fraction 3. Adequate coronary artery revascularization as described above 4. Elevated LVEDP PLAN: 1. Treatment of paroxysmal atrial fibrillation 2. Risk factor modification 3. Anticoagulation 4. Aggressive rate controlling medicines and in order to avoid the tachyarrhythmia which is associated with demand ischemia and subsequent non-ST elevation myocardial infarction
[2016-10-12] MEDS ORDERED: CARDIZEM GENERI30 MG PO (12:43)
[2016-10-12] MEDS ORDERED: ZITHROMAX Z PA250 MG PO (12:47)
--- NOTE | 2016-10-12 12:53 | DISCHARGE SUMMARY STANDARD ---
Demographics Admit date: 10/09/16 Discharge date: 10/12/16 History of present illness History of present illness 65-year-old female presented to the ER with chest pain that radiated into her back. Patient states it felt like the pain when she had her bypass surgery. Patient states over the last couple days she's noticed her heart rate being fast. Had been taken medicine she had at home with no improvement. Patient presented to the ER and a rapid heart rate around 200 bpm. Placed on a cardizem drip and converted to normal sinus rhythm with a rate of 90. Chest x-ray also showed a pneumonia. Patient admitted for cardiac monitoring, IV antibiotics for the pneumonia and a cardiology consult for the atrial flutter. The above per GUZMAN Baca. Patient relates some intermittent palpitations, shortness of breath and chest pain with radiation to the back and the LEFT arm prior to admission. Since some patient converted back to sinus rhythm on Cardizem drip she has had brief episodes of chest discomfort associated with palpitations and heart rates in the low 100s. Neck enzymes on admission noted to be elevated with initial electrocardiogram showing an atrial tachycardia of about 196 bpm likely atrial fibrillation. Patient was seen in the office in July of this year at which time she related she had been out of her cardiac medications. However, at this time the patient states she has been taking her medications prior to admission. Cardiology consulted for atrial fibrillation and elevated cardiac enzymes. Hospital Course Hospital Course: PNEMONIA- ANTIBOTICS, CHEST PAIN- A FLUTTER- HEART CATH IMPRESSION: 1. Acute non-ST elevation myocardial infarction stemming from demand ischemia related to tachyarrhythmia 2. Normal ejection fraction 3. Adequate coronary artery revascularization as described above 4. Elevated LVEDP PLAN: 1. Treatment of paroxysmal atrial fibrillation 2. Risk factor modification 3. Anticoagulation 4. Aggressive rate controlling medicines and in order to avoid the tachyarrhythmia which is associated with demand ischemia and subsequent non-ST elevation myocardial infarction Discharge diagnoses Problem List 1. Cardiac arrhythmia 2. Pneumonia 3. Back pain 4. Atrial flutter Medications Medications: Discharge meds are as noted. Follow up Follow up in office in: 7 DAYS with: Liliana CANALES,Genaro Win Comment: ROUNDED WITH LILIANA, FOLLOW UP WITH LILIANA IN 7 DAYS AND FERN NEXT WEEK. FERN OK TO DC at [phone]
--- NOTE | 2016-10-12 16:11 | RADIOLOGY REPORT PS360 ---
CHEST(2 VIEWS-NOT PORTABLE) Ordering Physician: Genaro Colin MD Patient Age: 65 years: Female HISTORY: PNEUMONIApneumonia short of breath posterior a catheter and sedation. TECHNIQUE: COMPARISON is made to previous chest film 10/09/2016, as well as a CT chest from that same day. FINDINGS Again seen extensive diffuse alveolar infiltrate throughout the right lung with alveolar infiltrate most dense towards the right upper lobe.. Most dense area consolidation right upper lobe shown only scant improvement with persistent air bronchograms are seen here. However the infiltrate at the right mid and lower lung zapata has shown more evident improvement since 414 CXR. Left lung with airspace disease/infiltrate at the medial left lower lobe likely similar to previous studies. Cardiomegaly. Partial Sternotomy. Lateral view suggests small bilateral pleural effusions yielding subtle blunting at the posterior sulcus ----IMPRESSION 1. Diffuse infiltrate right lung ... Improvement RLL most notable since 10/09 . Dense consolidation w/ air bronchograms RUL-stable to perhaps incremental improvement RUL 2. Minimal infiltrate medial LLL appears stable. 3. Suspect small bilateral pleural effusions blunting posterior sulcus on today's lateral view 4. Mild pulmonary vascular engorgement slightly more pronounced
[2016-10-13 00:02] VITALS: BP 152/71
[2016-10-13 04:53] VITALS: BP 122/78
[2016-10-13 07:00] LABS: HEMOGLOBIN 9.7 g/dL (12.2-16.2); LYMPH # 1.6 K/mm3 (0.7-4.5); LYMPH % 35.4 % (10-50.0)
[2016-10-13 07:47] VITALS: BP 113/64
--- NOTE | 2016-10-13 07:56 | ACUTE CARE PROGRESS NOTE (QUA) ---
Progress Notes Subjective Date 10/13/16 Time 0752 Note 65 yo WF in NAD. Eating breakfast without complaints of chest pain. Some sweating noted. Objective Findings Last VS-Temp:98.5 B/P:113/64 Pulse:80 Resp:20 SaO2:96 OXYGEN Last weight lbs:190 oz:8 K.410 Method:Bed Scales Exam General appearance: alert, awake, no acute distress Cardiovascular: regular rate & rhythm, murmur Respiratory: diminished breath sounds Extremities: moves all, no peripheral edema Neuro: alert, intact, oriented Reviewed: medications, vital signs, lab results Assessment/Plan Problem List 1. Cardiac arrhythmia Assessment/Plan: Stable on current medical therapy. Xarelto started for thromboembolic prophylaxis with CHADS-VASc score of at least 4. Qualifiers: Arrhythmia type: unspecified cardiac arrhythmia Qualified Code: I49.9 - Cardiac arrhythmia, unspecified 2. Pneumonia 3. Back pain 4. Atrial flutter 5. History of ASCVD Assessment/Plan: Adequately revascularized by cath yesterday. Patient condition Stable Plan: Stable from cardiac status for discharge. Follow up in 1-2 wks. This inpt stay is expected to cross 2 MNs from start of care Yes at 0750
[2016-10-13 08:00] VITALS: BP 113/64
--- NOTE | 2016-10-13 08:34 | ACUTE CARE PROGRESS NOTE (QUA) ---
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 Cardiac arrhythmia 2. Pneumonia 3. Back pain 4. Atrial flutter 5. History of ASCVD Patient condition Improving Plan: initiate discharge plan This inpt stay is expected to cross 2 MNs from start of care Yes Comments: will see as op for follow up and will see card as op at 0827
--- NOTE | 2016-10-13 08:34 | ACUTE CARE PROGRESS NOTE (QUA) ---
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 Cardiac arrhythmia 2. Pneumonia 3. Back pain 4. Atrial flutter 5. History of ASCVD Patient condition Improving Plan: initiate discharge plan This inpt stay is expected to cross 2 MNs from start of care Yes Comments: will see as op for follow up and will see card as op at [phone]
[2016-10-13 11:40] VITALS: BP 113/64
== END 2016-10-13 11:50 | disposition home or self-care (01) | DRG 280 ==
LOC: ER 01:20 → 2ND 02:54
PROVIDERS: Emergency Medicine; Internal Medicine
PROC: B2131ZZ Fluoroscopy of Multiple Coronary Artery Bypass Grafts using Low Osmolar Contrast (ICD-10-PCS; 2016-10-12)
PROC: B2111ZZ Fluoroscopy of Multiple Coronary Arteries using Low Osmolar Contrast (ICD-10-PCS; 2016-10-12)
PROC: B2151ZZ Fluoroscopy of Left Heart using Low Osmolar Contrast (ICD-10-PCS; 2016-10-12)
PROC: 4A023N7 Measurement of Cardiac Sampling and Pressure, Left Heart, Percutaneous Approach (ICD-10-PCS; principal; 2016-10-12 10:00)
DX: I21.4 Non-ST elevation (NSTEMI) myocardial infarction (principal); J18.9 Pneumonia, unspecified organism; I48.0 Paroxysmal atrial fibrillation; J44.9 Chronic obstructive pulmonary disease, unspecified; E11.9 Type 2 diabetes mellitus without complications; Z95.1 Presence of aortocoronary bypass graft; I25.10 Atherosclerotic heart disease of native coronary artery without angina pectoris; I10 Essential (primary) hypertension; Z79.4 Long term (current) use of insulin
CPT/HCPCS: C1725; C1769; J0456; J1644; J2405; Q9967

== ENCOUNTER 2016-10-25 19:28 | Emergency (ER) | payer MEDICARE ==
[~2016-10-25] VITALS: Ht 156.2 cm; Wt 81.6 kg
[~2016-10-25 19:28] MED LIST changes: +CARDIZEM GENERI30 MG PO; +KLONOPIN1 M2 PO; +LORTAB 5/3251 TAB PO; +ROPINIROLE8 M1 PO; +ZITHROMAX Z PA250 MG PO
[2016-10-25 19:54] LABS: HEMOGLOBIN 11.3 g/dL (12.2-16.2); LYMPH # 1.9 K/mm3 (0.7-4.5); LYMPH % 48.2 % (10-50.0)
[2016-10-25 20:14] LABS: BUN 14 mg/dL (7-18)
[2016-10-25 20:15] LABS: URINE BILIRUBIN - DIPSTICK NEGATIVE (NEG); URINE BLOOD TRACE-LYSED (NEG)
[2016-10-25 20:25] LABS: GFR (ESTIMATED) 41 ML/MIN (59-)
--- NOTE | 2016-10-25 20:45 | Emergency Room Report ---
History of Present Illness Time Seen by 2025 Presenting Problem in Triage Pt arrived:Wheelchair Presenting Problem:C/O CHEST PAIN SINCE 6 AMWITH RADIATION TO BOTH SHOULDERS, LEFT ARM AND BACK. ALSO C/O LLQ PAIN . HAS POORLY HEALING WOUND TO ABDOMEN. C/O FREQUENT URINATION Onset of symptoms date/time:10/25/16 or onset unknown for: Treatment Prior to Arrival: N/A MOLD CAPPER Provided by: Sepsis Risk Assessment: Temp: 98.1 B/P: 119/85 MAP: 106 Pulse: 93 Resp: 20 Recent fever? Y Clinical Suspician of Infection? Y Mental Status: 1 - Regular (Normal Baseline) Sepsis Risk:Possible Sepsis Risk Have you (or family members/close friends) recently traveled outside the [place]? N If Yes, where/when: Have you had exposure to infectious disease within the past month? N TB? Other? Specify: Source patient, RN notes reviewed, old records Exam Limitations no limitations Comment pt with chest pain with no syncope earlier today with hx of ht disease Cardiac Chest Pain Chest pain indicative of cardiac No Timing/Duration this evening Severity moderate ALLERGIES Coded Allergies: ibuprofen (From MOTRIN) (10/09/16) Home Medications Active Scripts ISOSORBIDE MONONITRATE (IMDUR 30MG) 30 MG PO DAILY 30 Days Prov: 07/24/16 Diltiazem Hcl (Cardizem Generic 30MG Tab) 30 MG PO BID 30 Days Prov: 10/12/16 PRAVASTATIN SODIUM (Pravastatin Sodium) 40 MG PO QHS #30 TAB Prov: 02/24/15 Reported Medications Aspirin (Aspir-Low) 81 MG PO DAILY Clonazepam (Klonopin) 1 MG PO BID HYDROCODONE/ACETAMINOPHEN (Lortab 5-325 MG Tablet) 1 TAB PO Q6HP PRN PAIN ROPINIROLE HCL (Ropinirole) 8 MG PO BIDP PRN NERVE DAMAGE IN LEGS INSULIN NPH HUM/REG INSULIN HM (Novolin 70-30 100 Unit/Ml Vial) 50 UNITS SC BID History Medical History General CAD? Yes Angina: No [place]: Yes Hypertension? Yes Hyperlipidemia? Yes CHF? No DVT? No PE? No COPD? Yes Asthma? No Anemia? Yes GERD? Yes Gastric ulcers? No GI Bleed? No Hernia? No Thyroid Problems? Yes Hypothyroidism? Yes CVA? No Seizures? No Diabetes? Yes Insulin Dependent: Yes Insulin Pump: No Home FSBS? Yes Renal Insuffiency? No End Stage Renal Disease? No UTI? Yes Stones? No BPH? No GB Disease: No Nephritic Syndrome? No Asplenia? No Hepatitis? No Sickle Cell Disease? No Arthritis? Yes Migraines? Yes Cataracts? Yes Glaucoma? No MRSA? No HIV? No TB? No Anxiety? Yes Depression? Yes Cancer? No More? No Immunization Hx DT/Tetanus 5-10 Years Ago Flu 2016-17FSN Pneumonia Received In Past Surgical Hx Previous Surgery?Y GALLBLADDER Coronary Artery Bypass Family History Family Hx Diabetes Yes CAD Yes Hypertension Yes Hyperlipidemia Yes Cancer Yes TB Yes Social History Smoking Hx Smoker: Former Smoker Tobacco: No Packs/day N/A Alcohol Alcohol: No Drugs none Review of Systems All Other Systems Reviewed and Negative Constitutional denies fever Eyes denies drainage ENT denies: ear pain, epistaxis, throat pain. Respiratory denies cough, denies shortness of breath, denies wheezing Cardiovascular chest pain, denies palpitations, denies syncope Gastrointestinal denies abdominal pain, denies diarrhea, denies vomiting Genitourinary denies: dysuria, frequency, hesitancy, hematuria. Musculoskeletal denies back pain, denies joint pain, denies neck pain Skin denies rash Psychiatric/Neurological denies headache, denies seizure Physical Exam Vital Signs Vital Signs Date Time Temp Pulse Resp B/P Pulse O2 O2 Flow FiO2 Ox Delivery Rate 10/25 2222 98.1 88 20 142/66 97 10/25 2205 88 20 142/66 97 10/25 2120 98.1 73 20 117/74 97 10/25 2036 98.1 93 20 119/85 97 10/25 1929 100.0 91 20 154/83 97 - WBC >12,000 or <4,000 or 10% bands? 2 or more SIRS Criteria Met? B/P:142/66 MAP:106 Creatinine >2.0? UA output<0.5ml/kg/hr for 2 hrs? Platelet count >100,000? Lactate >2.0mmol/1? INR >1.2 or PTT > than 60 sec? Evidence of Organ Dysfunction? Provider documented clinical suspician of infection? Y Sepsis Criteria Count: 2 Sepsis Risk: Possible Sepsis Risk General Appearance no apparent distress Eye Exam - bilateral eye PERRL, bilateral eye EOMI Ear, Nose, Throat normal ENT inspection Neck supple Respiratory Status No: respiratory distress. Lung Sounds bilateral: lungs clear. Cardiovascular regular rate/rhythm, systolic murmur Peripheral Pulses Pulses normal Yes Gastrointestinal soft Extremities normal inspection, no calf tenderness, no pedal edema Strength 4 Upper Ext (L), 4 Upper Ext (R), 4 Lower Ext (L), 4 Lower Ext (R) Neurologic alert, patient account specialist II-XII nml as tested, no motor/sensory deficits Reflexes Reflexes normal No Mental status normal mood/affect Skin intact Medical Decision Making LABS/Meds/Orders Pt receiving controlled substance in ED? No Results/Orders Laboratory Tests 10/25/168: POC Glucose 540 *H 10/25/16 1950: Urine Color YELLOW, Urine Appearance CLEAR, Urine pH 5.5, Ur Specific Harvey <= 1.005, Urine Protein NEGATIVE, Urine Ketones NEGATIVE, Urine Blood TRACE-LYSED, Urine Nitrate NEGATIVE, Urine Bilirubin NEGATIVE, Urine Urobilinogen 0.2, Ur Leukocyte Esterase NEGATIVE, Urine RBC 3-5, Ur Squamous Epith Cells 3-5, Urine Glucose 3+ H 10/25/161934: Lactic Acid 2.6 H 10/25/161934: Sodium 125 L, Potassium 4.2, Chloride 89 L, Carbon Dioxide 26, BUN 14, Creatinine 1.3 H, Estimated Creat Clear 56, Estimated GFR (MDRD) 41 L, Glucose 912 *H, Calcium 8.6, Total Bilirubin 0.3, AST 11 L, ALT 20, Alkaline Phosphatase 128 H, Creatine Kinase 56, CK-MB (CK-2) Rel Index 1.3, CK and CKMB Interp 0.7, Troponin I < 0.02, Total Protein 7.8, Albumin 3.3 L, Globulin 4.5 H, Albumin/Globulin Ratio 0.7 L, WBC 3.9 L, RBC 4.40, Hgb 11.3 L, Hct 37.4, MCV 85.1, RDW 15.0, Plt Count 433 H, MPV 6.3 L, Gran % 41.0, Gran # 1.6 L, Lymphocytes % 48.2, Monocytes % 7.2, Eosinophils % 2.3, Basophils % 1.3, Lymphocytes # 1.9, Monocytes # 0.3, Eosinophils # 0.1, Basophils # 0.1, PUBS MCHC 30.3 L, MCH 25.8 L, Acetone Level NONE DETECTED Current Medication Orders Sig/Marcia Start time Last Medication Dose Route Stop Time Status Admin Insulin Human Regular 0 .STK-MED ONE 10/26 2123 DC .ROUTE Insulin Human Regular 10 UNITS ONCE ONE 10/25 2114 DC 10/25 IVP 10/25 Aspirin 243 MG ONCE ONE 10/25 1944 DCr 10/25 PO 10/25 Sodium Chloride 10 ML PRN PRN 10/25 1944 AC IV 10/26 1936 Aspirin 0 .STK-MED ONE 10/25 1942 DCr .ROUTE Orders Procedure Date/time Status FINGERSTICK BLOOD SUGAR 10/25 2157 Complete Acetone, Serum 10/25 2026 Complete LACTIC ACID FOLLOW UP 10/26 2003 Active URINALYSIS/COMPLETE 10/25 1950 Complete CULTURE, WOUND 10/25 1946 Active ELECTROCARDIOGRAM REQUEST 10/26 1939 Active CHEST(2 VIEWS-NOT PORTABLE) 10/26 1939 Active IV SALINE LOCK 10/26 1939 Active CULTURE, BLOOD 10/26 1939 Active LACTIC ACID 10/26 1939 Complete COMPLETE METABOLIC PANEL 10/26 1939 Complete CBC WITH AUTO DIFF 10/26 1939 Complete CARDIAC ENZYMES 10/26 1939 Complete 12 LEAD EKG-BESSON (INITIAL) 10/25 UNK Active CM/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 ST/Twave chgs XRAY/CT/US XRAY/CT/US XRAY chest XR interpretation by reviewed by me Xray Results abnormal (see report) Departure Departure Time of Disposition 2223 Disposition DC Home or Self Care(routine) Clinical Impression Primary Impression: Diabetes mellitus Qualifiers: Diabetes mellitus type: type 1 Diabetes mellitus complication status: with unspecified complications Qualified Code: E10.8 - Type 1 diabetes mellitus with unspecified complications Condition STABLE Referrals Genaro Colin MD (Family) Patient Instructions DI for Diabetes Type 1 -- Adult Additional Instructions see pcp in am Discharge Counseling Counseled pt/family regarding diagnosis, test results, follow up needs ED Critical Care Critical Care No at 2226
[2016-10-25 22:23] VITALS: BP 142/66
--- NOTE | 2016-10-26 05:49 | RADIOLOGY REPORT PS360 ---
CHEST(2 VIEWS-NOT PORTABLE) HISTORY: C/O CHEST PAIN ORDERING PHYSICIAN: Mckenna Colin MD PATIENT AGE: 65 years COMPARISON: 10/19/2016 FINDINGS: Prior median sternotomy. Normal heart size. Dense mitral annular calcification. There does remain some increased density right upper lobe consistent with some residual pneumonia. This has shown some improvement. The remaining lungs are clear. No obvious effusion. IMPRESSION:. Persistent but improving right upper lobe pneumonia.
--- OUTSIDE RECORDS SUMMARY | 2016-10-26 08:39 | External Medical Summary Rpt ---
Author Author , Organization [employer] Address Unknown Phone Unavailable Care Team Providers Care Roller Mill Tender Name Role Phone AVE PHM, AVE PHM Unavailable Unavailable KEVON MONCADA, Unavailable Unavailable KEVON MONCADA ERIC T, Unavailable Unavailable [facility] [address] [facility] Purpose Continuity of Care Document - 05-29-2008 through 2016 Problems Code Diagnosis DOS Provider Status [id number] DIAB W/O 06-23-2008 ST COMP TYPE [facility] II/UNS NOT MEDICALCENT STATED ER UNCNTRL 73924 PAIN IN 06-23-2008 JOINT, [facility] 7242 LUMBAGO 06-23-2008 [facility] 7295 PAIN IN 06-23-2008 ST SOFT [facility] TISSUES OF MEDICALCENT LIMB ER 7823 EDEMA 06-23-2008 [facility] 8472 LUMBAR 06-23-2008 ST SPRAIN AND [facility] STRAIN [facility] V148 PERSONAL 06-23-2008 HISTORY [facility] ALLERGY OTH MEDICALCENT SPEC ER MEDICINAL AGTS [id number] LONG-TERM 06-23-2008 ST USE OF [facility] INSULIN MEDICALCENT ER [id number] LONG-TERM 06-23-2008 (CURRENT) [facility] USE OF MEDICALCENT OTHER ER MEDICATIONS [id number] SPASM OF 06-07-2008 MUSCLE [facility] E11.9 TYPE 2 DIABETES MELLITUS WITHOUT COMPLICATIO NS I49.9 CARDIAC ARRHYTHMIA, UNSPECIFIED J02.9 ACUTE PHARYNGITIS , UNSPECIFIED J18.9 PNEUMONIA, UNSPECIFIED ORGANISM R06.02 SHORTNESS OF BREATH R73.9 HYPERGLYCEM IA, UNSPECIFIED Procedures Procedure DOS Code Location Performer Comment [id number] PHM WITH 8 NEEDLE STERILE 1 CC OR LESS EACH Encounters Encounter Start End Date Code Location Performer Type Date HOSPITAL ST - 8 8 [facility] Orantes MEDICAL[facility] NTER EMERGENCY [address] [facility], 8 8 RASH[facility] Lemos [facility] MED CTR T VISIT HIGH/URGE NT SEVERITY EMERGENCY 53458 8 8 R[facility] Orantes VISIT MEDICALCE MODERATE NTER SEVERITY EMERGENCY [address] [facility] 8 8 MILKA BROWNE [facility] MED CTR T VISIT HIGH/URGE NT SEVERITY
--- OUTSIDE RECORDS SUMMARY | 2016-10-26 08:39 | External Medical Summary Rpt ---
Author Author , Organization [employer] Address Unknown Phone Unavailable Care Team Providers Care Dialysis Tech Name Role Phone AVE PHM, AVE PHM Unavailable Unavailable KEVON MONCADA, Unavailable Unavailable KEVON MONCADA ERIC T, Unavailable Unavailable [facility] Purpose Continuity of Care Document - 05-29-2008 through 2016 Problems Code Diagnosis DOS Provider Status [id number] DIAB W/O 06-23-2008 ST COMP TYPE [facility] II/UNS NOT MEDICALCENT STATED ER UNCNTRL 82816 PAIN IN 06-23-2008 JOINT, [facility] LOWER LEG [...] [facility] USE OF MEDICALCENT OTHER ER MEDICATIONS [id number] SPASM OF 06-07-2008 MUSCLE [facility] MED CTR [...] 8 8 [facility] Orantes MEDICALCE NTER EMERGENCY [address] [facility], 8 8 R[facility] Lemos [facility] MED CTR T VISIT HIGH/URGE NT SEVERITY EMERGENCY 55750 8 8 R[facility] Orantes VISIT MEDICALCE MODERATE NTER SEVERITY EMERGENCY [address] [facility] 8 8 MILKA BROWNE [facility] MED CTR T VISIT HIGH/URGE NT SEVERITY
--- OUTSIDE RECORDS SUMMARY | 2016-10-26 08:39 | External Medical Summary Rpt ---
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 Name Role Phone AVE PHM, AVE PHM Unavailable Unavailable KEVON MONCADA, Unavailable Unavailable KEVON MONCADA ERIC T, Unavailable Unavailable MILKA [facility] Purpose Continuity of Care Document - 05-29-2008 through 2016 Problems Code Diagnosis DOS Provider Status [id number] DIAB W/O 06-23-2008 ST COMP TYPE [facility] II/UNS NOT MEDICALCENT STATED ER UNCNTRL 87880 PAIN IN 06-23-2008 JOINT, [facility] 7242 LUMBAGO 06-23-2008 [facility] 7295 PAIN IN 06-23-2008 SOFT [facility] TISSUES OF MEDICALCENT LIMB ER 7823 EDEMA 06-23-2008 [facility] 8472 LUMBAR 06-23-2008 ST SPRAIN AND [facility] STRAIN MED CTR V148 PERSONAL 06-23-2008 ST HISTORY [facility] ALLERGY OTH MEDICALCENT SPEC ER MEDICINAL AGTS [id number] LONG-TERM 06-23-2008 ST USE OF [facility] INSULIN MEDICALCENT ER [id number] LONG-TERM 06-23-2008 ST (CURRENT) [facility] USE OF MEDICALCENT OTHER ER MEDICATIONS [id number] SPASM OF 06-07-2008 MUSCLE [facility] Procedures Procedure DOS Code Location Performer Comment [address]E [address] PHM WITH 8 NEEDLE STERILE 1 CC OR LESS EACH Encounters Encounter Start End Date Code Location Performer Type Date HOSPITAL [facility] 8 8 R[facility] OUTPATIEN T MEDICALCE NTER EMERGENCY [address] [facility] 8 RASHMI DEPARTMEN T VISIT MEDICALCE MODERATE NTER SEVERITY EMERGENCY [address] [place] [address] 8 [facility] HIGH/URGE NT SEVERITY EMERGENCY [address] [facility] 8 8 MILKA BROWNE [facility] MED CTR T VISIT HIGH/URGE NT SEVERITY
--- OUTSIDE RECORDS SUMMARY | 2016-10-26 08:39 | External Medical Summary Rpt ---
Author Author , Organization [employer] Address Unknown Phone Unavailable Care Team Providers Care Art Educator Name Role Phone AVE PHM, AVE PHM Unavailable Unavailable KEVON MONCADA, Unavailable Unavailable KEVON MONCADA ERIC T, Unavailable Unavailable MILKA HOBBS [facility] Purpose Continuity of Care Document - 05-29-2008 through 2016 Problems Code Diagnosis DOS Provider Status 94084 DIAB W/O 06-23-2008 ST COMP TYPE [facility] II/UNS NOT MEDICALCENT STATED ER UNCNTRL 66215 PAIN IN 06-23-2008 JOINT, RASHMI LOWER LEG [...] [facility] USE OF MEDICALCENT OTHER ER MEDICATIONS 92172 SPASM OF 06-07-2008 [facility] Procedures Procedure DOS Code Location Performer Comment [address] PHM WITH 8 NEEDLE STERILE 1 CC OR LESS EACH Encounters Encounter Start End Date Code Location Performer Type Date HOSPITAL [facility] 8 8 RASHMI OUTPATIEN T MEDICALCE NTER EMERGENCY [address] [facility] 8 RASHMI DEPARTMEN T VISIT MEDICALCE MODERATE NTER SEVERITY EMERGENCY [address] [place] [address] 8 [facility]DA [facility] VISIT HIGH/URGE NT SEVERITY EMERGENCY [address] [facility] 8 8 MILKA BROWNE [facility] MED CTR T VISIT HIGH/URGE NT SEVERITY
--- OUTSIDE RECORDS SUMMARY | 2016-10-26 08:40 | External Medical Summary Rpt ---
Author Author SRIRAM Gonzales, [employer] Organization [employer] Address Unknown Phone Unavailable
--- OUTSIDE RECORDS SUMMARY | 2016-10-26 08:40 | External Medical Summary Rpt ---
Demographics Preferred Language Italian Marital Status Unknown Jehovah'S Witness Affiliation Unknown Race Unknown Ethnic Group Unknown Author Author , Organization [employer] Address Unknown Phone Unavailable Purpose Continuity of Care Document - through 2016 Immunization No patient found.
--- OUTSIDE RECORDS SUMMARY | 2016-10-26 08:40 | External Medical Summary Rpt ---
Demographics Preferred Language Serbian Marital Status Unknown Gnosticist Affiliation Unknown Race Unknown Ethnic Group Unknown Author Author , Organization [employer] Address Unknown Phone Unavailable Purpose Continuity of Care Document - through 2016 Immunization No patient found.
[2016-10-27] MEDS ORDERED: TRAMADOL 50MG T50 M1 PO (10:04)
[2016-10-27] MEDS ORDERED: CLONAZEPAM0.5 M1 PO (10:05)
[2016-10-27] MEDS ORDERED: ZOFRAN4 MG PO (10:06)
[2016-10-27] MEDS ORDERED: ESCITALOPRAM10 M1 PO (10:07)
[2016-10-27] MEDS ORDERED: TIZANIDINE HCL 44 MG PO (10:08)
[2016-10-27] MEDS ORDERED: GABAPENTIN800 MG PO (10:10)
[2016-10-27] MEDS ORDERED: CARVEDILOL6.25 MG PO (10:10)
[2016-10-27] MEDS ORDERED: NOVOLOG MI100 UNITS/ SC (10:14)
== END 2016-10-25 22:34 | disposition home or self-care (01) ==
LOC: ER 19:28
PROVIDERS: Emergency Medicine
DX: E10.8 Type 1 diabetes mellitus with unspecified complications (principal); Z79.4 Long term (current) use of insulin; R07.9 Chest pain, unspecified

== ENCOUNTER 2017-03-15 16:33 | Emergency (ER) | payer MEDICARE ==
[~2017-03-15] VITALS: Ht 154.9 cm; Wt 86.2 kg
--- NOTE | 2017-03-15 17:55 | Emergency Room Report ---
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 N Clinical Suspician of Infection? N Mental Status: 1 - Regular (Normal Baseline) Sepsis Risk:Low Sepsis Risk Have you (or family members/close friends) recently traveled outside the [place]? N If Yes, where/when: Have you had exposure to infectious disease within the past month? N TB? Other? Specify: Feeling sad and anxious, son just left for [place], she has decided to move there because she's lonely. She has depression and is on Lexapro. She denies SI and and denies HI, no hallucinations. Feels like her heart is racing while anxious, and has a hx of CABG. Is diabetic and ate chicken today, as well as took her insulin. ALLERGIES Coded Allergies: ibuprofen (From MOTRIN) (10/09/16) Home Medications Active Scripts ISOSORBIDE MONONITRATE (IMDUR 30MG) 30 MG PO DAILY 30 Days Prov: 07/24/16 Diltiazem Hcl (Cardizem Generic 30MG Tab) 30 MG PO BID 30 Days Prov: 10/12/16 PRAVASTATIN SODIUM (Pravastatin Sodium) 40 MG PO QHS #30 TAB Prov: 02/24/15 Reported Medications Aspirin (Aspir-Low) 81 MG PO DAILY INSULIN NPH HUM/REG INSULIN HM (Novolin 70-30 100 Unit/Ml Vial) 50 UNITS SC BID ROPINIROLE HCL (Ropinirole) 8 MG PO BIDP PRN NERVE DAMAGE IN LEGS ONDANSETRON HCL (Zofran 4MG Tab) 4 MG PO Q8H Escitalopram Oxalate 10 MG PO DAILY TIZANIDINE HCL (Tizanidine Hcl 4 Mg Tablet) 4 MG PO TID Gabapentin (Gabapentin 800MG) 800 MG PO TID Carvedilol (Carvedilol 6.25MG) 6.25 MG PO BID Ins Asp-Prt 70/Asp 30(Nvlogmx) (Novolog Mix 70-30 Flexpen Syrn) 50 UNITS SC BID History Medical History General CAD? Yes Angina: No [place]: Yes Hypertension? Yes Hyperlipidemia? Yes CHF? No DVT? No PE? No COPD? Yes Asthma? No Anemia? Yes GERD? Yes Gastric ulcers? No GI Bleed? No Hernia? No Thyroid Problems? Yes Hypothyroidism? Yes CVA? No Seizures? No Diabetes? Yes Insulin Dependent: Yes Insulin Pump: No Home FSBS? Yes Renal Insuffiency? No End Stage Renal Disease? No UTI? Yes Stones? No BPH? No GB Disease: No Nephritic Syndrome? No Asplenia? No Hepatitis? No Sickle Cell Disease? No Arthritis? Yes Migraines? Yes Cataracts? Yes Glaucoma? No MRSA? No HIV? No TB? No Anxiety? Yes Depression? Yes Cancer? No More? No Immunization Hx DT/Tetanus 5-10 Years Ago Flu 2015-17FSN Pneumonia Received In Past Surgical Hx Previous Surgery?Y GALLBLADDER Coronary Artery Bypass Family History Family Hx Diabetes Yes CAD Yes Hypertension Yes Hyperlipidemia Yes Cancer Yes TB Yes Social History Smoking Hx Smoker: Never Smoker Tobacco: No Packs/day N/A Alcohol Alcohol: No Review of Systems All Other Systems Reviewed and Negative Cardiovascular palpitations Psychiatric/Neurological see HPI Physical Exam Vital Signs Vital Signs Date Time Temp Pulse Resp B/P Pulse O2 O2 Flow FiO2 Ox Delivery Rate 03/15 1920 100.0 84 16 163/81 95 03/15 1821 84 16 150/67 95 03/15 1635 98.4 88 18 137/84 94 General Appearance normal appearance, WD/WN, no apparent distress Eye Exam - bilateral eye normal exam, bilateral eye PERRL, bilateral eye EOMI Neck normal inspection, non-tender, supple, full range of motion Respiratory Status Yes: trachea midline, chest symmetrical, non tender chest. No: respiratory distress, tender on palpation, use of accessory muscles, pain on inspiration, pain on expiration, productive cough, non productive cough. Lung Sounds bilateral: normal breath sounds, lungs clear. Cardiovascular normal exam, regular rate/rhythm, no peripheral edema, no gallop, no JVD, no murmur, no rub, normal peripheral pulses Gastrointestinal normal bowel sounds, normal exam, non tender, soft, no organomegaly, no pulsatile mass, no guarding, no rebound Back normal inspection, strt leg raising(L)-NML, strt leg raising(R)-NML Neurologic alert, normal exam, no motor/sensory deficits, oriented x 3 Glascow Coma Scale Glascow Coma Scale Response Value EYE response: 4 Spontaneously 4 MOTOR response: 6 OBEYS 6 VERBAL response: 5 Oriented & Converses 5 Total 15 Mental status normal mood/affect (sad) Skin intact, normal color, warm/dry, scabbed over abrasion with a little warmth and redness, mid abominal area, no streaks or pus Medical Decision Making LABS/Meds/Orders Pt receiving controlled substance in ED? No Results/Orders Laboratory Tests 03/15/171929: Urine Color YELLOW, Urine Appearance CLEAR, Urine pH 6.0, Ur Specific [place] <= 1.005, Urine Protein NEGATIVE, Urine Ketones TRACE H, Urine Blood NEGATIVE, Urine Nitrate NEGATIVE, Urine Bilirubin NEGATIVE, Urine Urobilinogen 0.2, Ur Leukocyte Esterase NEGATIVE, Urine Glucose 3+ H 03/15/171858: Sodium 138, Potassium 3.9, Chloride 100, Carbon Dioxide 30, BUN 22 H, Creatinine 0.8, Estimated Creat Clear 94, Estimated GFR (MDRD) 72, Glucose 356 H, Calcium 9.4, Total Bilirubin 0.6, AST 9 L, ALT 16, Alkaline Phosphatase 135 H, Troponin I < 0.02, Total Protein 7.8, Albumin 3.6, Globulin 4.2 H, Albumin/ Globulin Ratio 0.9 L, WBC 7.8, RBC 5.19, Hgb 13.0, Hct 41.3, MCV 79.6 L, RDW 18.0 H, Plt Count 272, MPV 7.8, Gran % 63.7, Gran # 5.0, Lymphocytes % 28.3, Monocytes % 6.8, Eosinophils % 0.9, Basophils % 0.3, Lymphocytes # 2.2, Monocytes # 0.5, Eosinophils # 0.1, Basophils # 0.0, PUBS MCHC 31.5 L, MCH 25.1 L Current Medication Orders Sig/Marcia Start time Last Medication Dose Route Stop Time Status Admin Acetaminophen 650 MG ONCE ONE 03/15 1930 DC 03/15 PO 03/15 Acetaminophen 0 .STK-MED ONE 03/15 1923 DC PO Hydroxyzine Pamoate 0 .STK-MED ONE 03/15 1907 DC PO Hydroxyzine Pamoate 25 MG ONCE ONE 03/15 1830 DC 03/15 PO 03/15 1831 1908 Orders Procedure Date/time Status URINALYSIS/COMPLETE 03/15 192 Complete 12 LEAD EKG-COLIN (INITIAL) 03/15 1751 Active ELECTROCARDIOGRAM REQUEST 03/15 1751 Active CHEST(2 VIEWS-NOT PORTABLE) 03/15 175 Active TROPONIN I 03/15 1751 Complete CBC WITH AUTO DIFF 03/15 1751 Complete CHEM 12 PROFILE 03/15 1751 Complete CM/EKG CM/EKG EKG rate, NSR, rhythm, no evid. of ischemic chgs, no ectopy, normal QRS, normal NH, normal EKG (NSR 77) XRAY/CT/US XRAY/CT/US XRAY chest XR interpretation by reviewed by me Xray Results abnormal, no acute interval change; old scarring noted, prom aortic knob; midline wires Departure Departure Time of Disposition 1953 Disposition Still a Patient Clinical Impression Primary Impression: Anxiety Secondary Impressions: Abdominal wall cellulitis Condition STABLE Referrals Dixie CANALES,Genaro Win Patient Instructions Cellulitis, DI for Anxiety -- Adult Additional Instructions See Anisha in one to two days to recheck abdominal wall cellulitis; Rx Bactrim for cellulitis; Vistaril for anxiety Discharge Counseling Counseled pt/family regarding diagnosis, test results, medications/RX, home care, follow up needs Prescriptions Current Visit Scripts SULFAMETHOXAZOLE W/TRIMETHOPRI (Bactrim Ds Tab) 1 TABLET PO BID #20 TAB Hydroxyzine Pamoate (Vistaril 25MG CAP) 25 MG PO Q6HP PRN anxiety #6 CAP ED Critical Care Critical Care No at 1958
[2017-03-15 19:17] LABS: LYMPH # 2.2 K/mm3 (0.7-4.5); LYMPH % 28.3 % (10-50.0)
[2017-03-15 19:28] LABS: BUN 22 mg/dL (7-18); GFR (ESTIMATED) 72 ML/MIN (59-)
[2017-03-15 19:43] LABS: URINE BILIRUBIN - DIPSTICK NEGATIVE (NEG); URINE BLOOD NEGATIVE (NEG)
[2017-03-15 20:02] VITALS: BP 163/81
--- NOTE | 2017-03-15 23:33 | RADIOLOGY REPORT PS360 ---
CHEST(2 VIEWS-NOT PORTABLE) HISTORY: malaise ORDERING PHYSICIAN: Yvonne Bellamy MD PATIENT AGE: 66 years COMPARISON: 11/25/2016 FINDINGS: There has been prior median sternotomy. Cardiac size is upper limits of normal. No CHF. No lobar consolidation or collapse. Degenerative changes thoracic spine. IMPRESSION: Prior CABG with borderline cardiomegaly
--- OUTSIDE RECORDS SUMMARY | 2017-04-07 05:27 | External Medical Summary Rpt ---
Author Author , SRIRAM BHATIA Address Unknown Phone [email or web address] Care Team Providers Care National Accounts Sales Name Role Phone AVE PHM, AVE PHM Unavailable Unavailable KEVON MONCADA, Unavailable Unavailable KEVON MONCADA ERIC T, Unavailable Unavailable MILKA HOBBS [facility] Purpose Continuity of Care Document - 05-29-2008 through 2016 Problems Code Diagnosis DOS Provider Status 44917 DIAB W/O 06-23-2008 ST COMP TYPE [facility] II/UNS NOT MEDICALCENT STATED ER UNCNTRL 58585 PAIN IN 06-23-2008 ST JOINT, [facility] LOWER LEG MED CTR 7242 LUMBAGO 06-23-2008 [facility] 7295 PAIN IN 06-23-2008 ST SOFT [facility] TISSUES OF MEDICALCENT LIMB ER 7823 EDEMA 06-23-2008 [facility] 8472 LUMBAR 06-23-2008 ST SPRAIN AND [facility] STRAIN MED CTR V148 PERSONAL 06-23-2008 ST HISTORY [facility]ASH[facility] ALLERGY OTH MEDICALCENT SPEC ER MEDICINAL AGTS [id number] LONG-TERM 06-23-2008 ST USE OF RASH[facility] INSULIN MEDICALCENT ER [id number] LONG-TERM 06-23-2008 ST (CURRENT) [facility] USE OF MEDICALCENT OTHER ER MEDICATIONS 13161 SPASM OF 06-07-2008 ST MUSCLE [facility] Procedures Procedure DOS Code Location Performer Comment [address] PHM WITH 8 NEEDLE STERILE 1 CC OR LESS EACH Encounters Encounter Start End Date Code Location Performer Type Date EMERGENCY [address] 8 8 RASHMILINDA JACOMEMEN T VISIT MEDICAL MODERATE NTER SEVERITY [facility] ST - 8 8 RASHMI OUTPATIEN T MEDICALCE NTER EMERGENCY [address] [facility], 8 RASHMI Lemos [facility] MED CTR T VISIT HIGH/URGE NT SEVERITY EMERGENCY [address] [facility] 8 8 MILKA BROWNE [facility] MED CTR T VISIT HIGH/URGE NT SEVERITY
--- OUTSIDE RECORDS SUMMARY | 2017-04-07 05:27 | External Medical Summary Rpt ---
Author Author , SRIRAM BHATIA Address Unknown Phone [email or web address] Care Team Providers Care Paediatrician Name Role Phone AVE PHM, AVE PHM Unavailable Unavailable KEVON MONCADA, Unavailable Unavailable KEVON MONCADA ERIC T, Unavailable Unavailable MILKA HOBBS [facility] Unavailable Unavailable [facility] Purpose Continuity of Care Document - 05-29-2008 through 2016 Problems Code Diagnosis DOS Provider Status 50637 DIAB W/O 06-23-2008 ST COMP TYPE [facility] II/UNS NOT MEDICALCENT STATED ER UNCNTRL 75327 PAIN IN 06-23-2008 ST JOINT, [facility]ASH[facility] LOWER [...] RASHMI USE OF MEDICALCENT OTHER ER MEDICATIONS 39486 SPASM OF 06-07-2008 ST [facility] Procedures Procedure DOS Code Location Performer Comment [address] PHM WITH 8 NEEDLE STERILE 1 CC OR LESS EACH Encounters Encounter Start End Date Code Location Performer Type Date EMERGENCY [address] [facility] NTER SEVERITY EMERGENCY 440[address] Thalia MONCADA 8 [facility] HIGH/URGE NT SEVERITY [facility]OSP[facility] - 8 8 RASHMI Orantes MEDICALCE NTER EMERGENCY [address] [facility] 8 8 MILKA BROWNE [facility] MED CTR T VISIT HIGH/URGE NT SEVERITY
--- OUTSIDE RECORDS SUMMARY | 2017-04-07 05:27 | External Medical Summary Rpt ---
Author Author SRIRAM Gonzales, SRIRAM Gonzales Organization [employer] Address Unknown Phone Unavailable
--- OUTSIDE RECORDS SUMMARY | 2017-04-07 05:27 | External Medical Summary Rpt ---
Author Author , SRIRAM BHATIA Address Unknown Phone Care Team Providers Care Applied Statistician Name Role Phone AVE PHM, AVE PHM Unavailable Unavailable KEVON MONCADA, Unavailable Unavailable KEVON MONCADA ERIC T, Unavailable Unavailable MILKA HOBBS [facility] Un[facility]available [facility] Purpose Continuity of Care Document - 05-29-2008 through 2016 Problems Code Diagnosis DOS Provider Status [id number] DIAB W/O 06-23-2008 ST COMP TYPE [facility] II/UNS NOT MEDICALCENT STATED ER UNCNTRL 04195 PAIN IN 06-23-2008 ST JOINT, RASH[facility] LOWER [...] RASHMI USE OF MEDICALCENT OTHER ER MEDICATIONS 65989 SPASM OF 06-07-2008 ST [facility] Procedures Procedure DOS Code Location Performer Comment [address] PHM WITH 8 NEEDLE STERILE 1 CC OR LESS EACH Encounters Encounter Start End Date Code Location Performer Type Date EMERGENCY [address]33 8 8 RASHMILINDA JACOMEMEN T VISIT MEDICAL MODERATE NTER [facility]VERITY [facility] ST - 8 8 RASHMI OUTPATIEN T MEDICALCE NTER EMERGENCY [address] [facility], 8 RASHMI Lemos [facility] MED CTR T VISIT HIGH/URGE NT SEVERITY EMERGENCY [address] [facility] 8 8 MILKA BROWNE [facility] MED CTR T VISIT HIGH/URGE NT SEVERITY
--- OUTSIDE RECORDS SUMMARY | 2017-04-07 05:27 | External Medical Summary Rpt ---
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 Role Phone AVE PHM, AVE PHM Unavailable Unavailable KEVON MONCADA, Unavailable Unavailable KEVON MONCADA ERIC T, Unavailable Unavailable MILKA HOBBS [facility] Un[facility]available [facility] Purpose Continuity of Care Document - 05-29-2008 through 2016 Problems Code Diagnosis DOS Provider Status 61200 DIAB W/O 06-23-2008 ST COMP TYPE [facility] II/UNS NOT MEDICALCENT STATED ER UNCNTRL 92492 PAIN IN 06-23-2008 ST JOINT, RASHMI LOWER [...] RASHMI USE OF MEDICALCENT OTHER ER MEDICATIONS 37250 SPASM OF 06-07-2008 ST [facility] Procedures Procedure DOS Code Location Performer Comment [address] PHM WITH 8 NEEDLE STERILE 1 CC OR LESS EACH Encounters Encounter Start End Date Code Location Performer Type Date EMERGENCY [address] [facility] NTER SEVERITY EMERGENCY [address] Thalia MONCADA 8 [facility] HIGH/URGE NT SEVERITY HOSP[facility] - 8 8 RASHMI Orantes MEDICALCE NTER EMERGENCY [address] [facility] 8 8 MILKA BROWNE [facility] MED CTR T VISIT HIGH/URGE NT SEVERITY
--- OUTSIDE RECORDS SUMMARY | 2017-04-07 05:27 | External Medical Summary Rpt ---
Demographics Home Phone Preferred Language Mohawk Marital Status Unknown Alevism Affiliation Unknown Race Unknown Ethnic Group Unknown Author Author , SRIRAM BHATIA Address Unknown Phone [email or web address] Immunization Name Date Rout CVX Reac Dose Comm Prov Is Faci e tion ent ider Refu lity Give sed n PCV1 02-2 133 999 Hist ANKUR No ANKUR 3 2-20 oric LO LO 17 al Info rmat ion - Sour ce Unsp ecif ied Infl 02-0 Intr 88 999 Hist ANKUR No ANKUR uenz 1-20 amus oric LO LO a, 17 cula al UF r Info rmat ion - Sour ce Unsp ecif ied Infl 01-1 Intr 150 999 Hist 1005 No 1005 uenz 8-20 amus oric 00 00 a 16 cula al Quad r Info Inj rmat ion - Sour ce Unsp ecif ied Tdap 06-2 Intr 115 999 Hist 1005 No 1005 , 9-20 amus oric 00 00 Adso 14 cula al rbed r Info rmat ion - Sour ce Unsp ecif ied
--- OUTSIDE RECORDS SUMMARY | 2017-04-07 05:27 | External Medical Summary Rpt ---
Demographics Home Phone Preferred Language Indonesian Marital Status Unknown Jain Affiliation Unknown Race Unknown Ethnic Group Unknown Author Author , SRIRAM BHATIA Address Unknown Phone [email or web address] Immunization Name Date Rout CVX Reac Dose [...]
== END 2017-03-15 20:05 | disposition still patient (30) ==
LOC: ER 16:33
PROVIDERS: Emergency Medicine
DX: F41.9 Anxiety disorder, unspecified (principal); L03.311 Cellulitis of abdominal wall; I25.10 Atherosclerotic heart disease of native coronary artery without angina pectoris; I10 Essential (primary) hypertension; Z95.1 Presence of aortocoronary bypass graft; J44.9 Chronic obstructive pulmonary disease, unspecified; E11.9 Type 2 diabetes mellitus without complications; Z79.899 Other long term (current) drug therapy; Z79.82 Long term (current) use of aspirin; Z79.4 Long term (current) use of insulin

== ENCOUNTER 2017-03-19 19:37 | Emergency (ER) | payer MEDICARE ==
[~2017-03-19] VITALS: Ht 154.9 cm; Wt 81.6 kg
[~2017-03-19 19:37] MED LIST changes: +ESCITALOPRAM10 M1 PO; +GABAPENTIN800 MG PO; +NOVOLOG MI100 UNITS/ SC; +TIZANIDINE HCL 44 MG PO; +TRAMADOL 50MG T50 M1 PO; +VISTARIL25 M1 PO; +ZOFRAN4 MG PO
[2017-03-19 20:12] LABS: LYMPH # 2.4 K/mm3 (0.7-4.5); LYMPH % 40.9 % (10-50.0)
--- NOTE | 2017-03-19 20:12 | Emergency Room Report ---
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 Y Clinical Suspician of Infection? Y Mental Status: 1 - Regular (Normal Baseline) Sepsis Risk:Low Sepsis Risk Have you (or family members/close friends) recently traveled outside the [place]? N If Yes, where/when: Have you had exposure to infectious disease within the past month? TB? Other? Specify: Source patient, RN notes reviewed, family, old records Exam Limitations no limitations Comment pt with acute episode of feeling anxious - no syncope or neuro sx Cardiac Chest Pain Chest pain indicative of cardiac No Timing/Duration this evening Severity moderate ALLERGIES Coded Allergies: ibuprofen (From MOTRIN) (10/09/16) Home Medications Active Scripts SULFAMETHOXAZOLE W/TRIMETHOPRI (Bactrim Ds Tab) 1 TABLET PO BID #20 TAB Prov: 03/15/17 Hydroxyzine Pamoate (Vistaril 25MG CAP) 25 MG PO Q6HP PRN anxiety #6 CAP Prov: 03/15/17 ISOSORBIDE MONONITRATE (IMDUR 30MG) 30 MG PO DAILY 30 Days Prov: 07/24/16 Diltiazem Hcl (Cardizem Generic 30MG Tab) 30 MG PO BID 30 Days Prov: 10/12/16 PRAVASTATIN SODIUM (Pravastatin Sodium) 40 MG PO QHS #30 TAB Prov: 02/24/15 Reported Medications Aspirin (Aspir-Low) 81 MG PO DAILY INSULIN NPH HUM/REG INSULIN HM (Novolin 70-30 100 Unit/Ml Vial) 50 UNITS SC BID ROPINIROLE HCL (Ropinirole) 8 MG PO BIDP PRN NERVE DAMAGE IN LEGS ONDANSETRON HCL (Zofran 4MG Tab) 4 MG PO Q8H Escitalopram Oxalate 10 MG PO DAILY TIZANIDINE HCL (Tizanidine Hcl 4 Mg Tablet) 4 MG PO TID Gabapentin (Gabapentin 800MG) 800 MG PO TID Carvedilol (Carvedilol 6.25MG) 6.25 MG PO BID Ins Asp-Prt 70/Asp 30(Nvlogmx) (Novolog Mix 70-30 Flexpen Syrn) 50 UNITS SC BID History Medical History General CAD? Yes Angina: No [place]: Yes Hypertension? Yes Hyperlipidemia? Yes CHF? No DVT? No PE? No COPD? Yes Asthma? No Anemia? Yes GERD? Yes Gastric ulcers? No GI Bleed? No Hernia? No Thyroid Problems? Yes Hypothyroidism? Yes CVA? No Seizures? No Diabetes? Yes Insulin Dependent: Yes Insulin Pump: No Home FSBS? Yes Renal Insuffiency? No End Stage Renal Disease? No UTI? Yes Stones? No BPH? No GB Disease: No Nephritic Syndrome? No Asplenia? No Hepatitis? No Sickle Cell Disease? No Arthritis? Yes Migraines? Yes Cataracts? Yes Glaucoma? No MRSA? No HIV? No TB? No Anxiety? Yes Depression? Yes Cancer? No More? No Immunization Hx Ped.Immunizations UTD No DT/Tetanus 5-10 Years Ago Flu 2015-FSN Pneumonia Received In Past Surgical Hx Previous Surgery?Y GALLBLADDER Coronary Artery Bypass Family History Family Hx Diabetes Yes CAD Yes Hypertension Yes Hyperlipidemia Yes Cancer Yes TB Yes Social History Smoking Hx Smoker: Never Smoker Tobacco: No Packs/day N/A Alcohol Alcohol: No Drugs none Review of Systems All Other Systems Reviewed and Negative Constitutional denies fever Eyes denies drainage ENT denies: ear discharge, epistaxis, throat pain. Respiratory denies cough, denies shortness of breath, denies wheezing Cardiovascular see HPI, denies chest pain, denies palpitations, denies syncope, other Gastrointestinal denies abdominal pain, denies diarrhea, denies vomiting Genitourinary denies: dysuria, frequency, hesitancy, hematuria. Musculoskeletal denies back pain, denies joint pain, denies joint swelling, denies neck pain Skin denies rash Psychiatric/Neurological see HPI, anxiety, denies headache, denies seizure Physical Exam Vital Signs Vital Signs Date Time Temp Pulse Resp B/P Pulse O2 O2 Flow FiO2 Ox Delivery Rate 03/19 2014 75 15 150/74 97 03/19 1938 99.9 77 15 150/74 100 - WBC >12,000 or <4,000 or 10% bands? 2 or more SIRS Criteria Met? B/P:150/74 MAP:99 Creatinine >2.0? UA output<0.5ml/kg/hr for 2 hrs? Platelet count >100,000? Lactate >2.0mmol/1? INR >1.2 or PTT > than 60 sec? Evidence of Organ Dysfunction? Provider documented clinical suspician of infection? Y Sepsis Criteria Count: 1 Sepsis Risk: Low Sepsis Risk General Appearance no apparent distress Eye Exam - bilateral eye PERRL, bilateral eye EOMI Ear, Nose, Throat normal ENT inspection Neck supple Respiratory Status No: respiratory distress. Lung Sounds bilateral: lungs clear. Cardiovascular regular rate/rhythm, no gallop, no JVD, systolic murmur Peripheral Pulses Pulses normal Yes Gastrointestinal soft, no organomegaly, no pulsatile mass, no guarding, no rebound Extremities normal inspection Strength 4 Upper Ext (L), 4 Upper Ext (R), 4 Lower Ext (L), 4 Lower Ext (R) Neurologic alert, abrading machine tender II-XII nml as tested, no motor/sensory deficits Reflexes Reflexes normal No Mental status normal mood/affect Skin intact Medical Decision Making LABS/Meds/Orders Pt receiving controlled substance in ED? No Results/Orders Laboratory Tests 03/19/172117: Urine Color YELLOW, Urine Appearance CLEAR, Urine pH 6.5, Ur Specific [place] 1.010, Urine Protein NEGATIVE, Urine Ketones NEGATIVE, Urine Blood NEGATIVE, Urine Nitrate NEGATIVE, Urine Bilirubin NEGATIVE, Urine Urobilinogen 0.2, Ur Leukocyte Esterase NEGATIVE, Urine Glucose 3+ H 03/19/171999: Sodium 136, Potassium 3.8, Chloride 101, Carbon Dioxide 30, BUN 16, Creatinine 0.8, Estimated Creat Clear 89, Estimated GFR (MDRD) 72, Glucose 318 H, Calcium 8.7, Total Bilirubin 0.5, AST 9 L, ALT 13, Alkaline Phosphatase 102, Creatine Kinase 52, CK-MB (CK-2) Rel Index 1.0, CK and CKMB Interp < 0.5, Troponin I < 0.02, Total Protein 7.0, Albumin 3.2 L, Globulin 3.8 H, Albumin/Globulin Ratio 0.8 L, WBC 6.0, RBC 4.51, Hgb 11.6 L, Hct 36.7 L, MCV 81.4 L, RDW 17.7 H, Plt Count 236, MPV 8.0, Gran % 51.4, Gran # 3.1, Lymphocytes % 40.9, Monocytes % 5.5, Eosinophils % 1.8, Basophils % 0.4, Lymphocytes # 2.4, Monocytes # 0.3, Eosinophils # 0.1, Basophils # 0.0, PUBS MCHC 31.7 L, MCH 25.8 L Current Medication Orders Sig/Marcia Start time Last Medication Dose Route Stop Time Status Admin Sodium Chloride 1,000 ML .STK-MED ONE 03/19 2004 DC IV Sodium Chloride 1,000 ML .Q1H1M 03/19 2000 DC 03/19 IV 03/19 Sodium Chloride 10 ML PRN PRN 03/19 2000 DC IV 03/20 1946 Sodium Chloride 10 ML PRN PRN 03/19 1945 AC IV 03/20 1945 Orders Procedure Date/time Status 12 LEAD EKG-COLIN (INITIAL) 03/19 1945 Active ELECTROCARDIOGRAM REQUEST 03/19 1945 Active CHEST-PORTABLE 03/19 1945 Active IV SALINE LOCK 03/19 1945 Active URINALYSIS/COMPLETE 03/19 1945 Complete CBC WITH AUTO DIFF 03/19 1945 Complete CARDIAC ENZYMES 03/19 1945 Complete CHEM 12 PROFILE 03/19 1945 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 of ischemic chgs Departure Departure Time of Disposition 2136 Disposition DC Home or Self Care(routine) Clinical Impression Primary Impression: Anxiety Condition STABLE Referrals RICK LOPEZ (Family) Patient Instructions DI for Anxiety -- Adult Additional Instructions resume meds and see pcp next week Discharge Counseling Counseled pt/family regarding diagnosis, test results, medications/RX, follow up needs ED Critical Care Critical Care No at 1612
[2017-03-19 20:15] LABS: HEMOGLOBIN 11.6 g/dL (12.2-16.2)
[2017-03-19 20:43] LABS: BUN 16 mg/dL (7-18)
[2017-03-19 20:48] LABS: GFR (ESTIMATED) 72 ML/MIN (59-)
[2017-03-19 21:44] LABS: URINE BILIRUBIN - DIPSTICK NEGATIVE (NEG); URINE BLOOD NEGATIVE (NEG)
[2017-03-19 22:38] VITALS: BP 148/88
--- NOTE | 2017-03-20 07:08 | RADIOLOGY REPORT PS360 ---
CHEST-PORTABLE HISTORY: HEART PALPS ORDERING PHYSICIAN: Mckenna Colin MD PATIENT AGE: 66 years FINDINGS: Prior median sternotomy/CABG. There is mild cardiomegaly without failure. Mitral valve annular calcification. No lobar consolidation or collapse. No acute bony anomalies. IMPRESSION: Mild cardiomegaly with post median sternotomy changes and mitral valve annular calcification. No change from 03/15/2017
== END 2017-03-19 22:38 | disposition home or self-care (01) ==
LOC: ER 19:37
PROVIDERS: Emergency Medicine
DX: F41.8 Other specified anxiety disorders (principal); Z79.899 Other long term (current) drug therapy; Z88.6 Allergy status to analgesic agent; I10 Essential (primary) hypertension; E78.5 Hyperlipidemia, unspecified; J44.9 Chronic obstructive pulmonary disease, unspecified; K21.9 Gastro-esophageal reflux disease without esophagitis; E11.9 Type 2 diabetes mellitus without complications; Z79.4 Long term (current) use of insulin

== ENCOUNTER 2017-04-13 15:33 | Emergency (ER) | payer MEDICARE ==
[~2017-04-13] VITALS: Ht 154.9 cm; Wt 90.7 kg
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
--- OUTSIDE RECORDS SUMMARY | 2017-04-13 15:49 | External Medical Summary Rpt | CCD ---
Author Author , SRIRAM BHATIA Address Unknown Phone [email or web address] Care Team Providers Care Cardiovascular Tech Name Role Phone JARAD DARWINM, JARAD PHM Unavailable Unavailable KEVON MONCADA, Unavailable Unavailable KEVON MONCADA ERIC T, Unavailable Unavailable [facility] Purpose Continuity of Care Document - 05-29-2008 through 2016 Problems Code Diagnosis DOS Provider Status 71269 DIAB W/O 06-23-2008 ST COMP TYPE [facility] II/UNS NOT MEDICALCENT STATED ER UNCNTRL 44022 PAIN IN 06-23-2008 ST JOINT, [facility] LOWER [...] [facility] USE OF MEDICALCENT OTHER ER MEDICATIONS 41453 SPASM OF 06-07-2008 MUSCLE [facility] MED CTR [...] PAIN SYNDROME I25.10 ATHSCL HEART DISEASE OF [place] CORONARY ARTERY W/O ANG PCTRS I49.9 CARDIAC [...] URIC ACID METAB, ACC, INIT Z79.899 OTHER [facility] (CURRENT) DRUG THERAPY Z86.14 PERSONAL HISTORY OF METHICILLIN RESIS STAPH INFECTION Z88.6 ALLERGY STATUS TO ANALGESIC AGENT STATUS Procedures Procedure DOS Code Location Performer Comment [address] PHM WITH 8 NEEDLE STERILE 1 CC OR LESS EACH Encounters Encounter Start End Date Code Location Performer Type Date EMERGENCY [address]32 8 8 RASHMI HANNA T VISIT MEDICALCE MODERATE NTER SEVERITY EMERGENCY 839[address] [facility], 8 8 RASHMI HANNA MED [facility] T VISIT HIGH/URGE NT SEVERITY HOSPITAL ST - 8 8 RASH[facility] [place] MEDICALCE NTER EMERGENCY [address] [facility] 8 8 MILKA BROWNE [facility] T VISIT HIGH/URGE NT SEVERITY
--- OUTSIDE RECORDS SUMMARY | 2017-04-13 15:50 | External Medical Summary Rpt | CCD ---
Demographics Preferred Language Kosovan Marital Status Unknown Mandaeism Affiliation Unknown Race Unknown Ethnic Group Unknown Author Author , IRA BHATIA Address Unknown Phone Immunization Unable to retrieve immunization data due to connection failure with Immunization Registry. Please try again later.
--- OUTSIDE RECORDS SUMMARY | 2017-04-13 15:50 | External Medical Summary Rpt | CCD ---
Demographics Preferred Language [place] Islander Marital Status Unknown Jainism Affiliation Unknown Race Unknown Ethnic Group Unknown Author Author , IRA BHATIA Address Unknown Phone Immunization Unable to retrieve immunization data due to connection failure with Immunization Registry. Please try again later.
--- OUTSIDE RECORDS SUMMARY | 2017-04-13 15:50 | External Medical Summary Rpt | CCD ---
Author Author , SRIRAM BHATIA Address Unknown Phone [email or web address] Team Providers Care Dumpcart Driver Name Role Phone AVE PHM, AVE PHM Unavailable Unavailable KEVON MONCADA, Unavailable Unavailable KEVON MONCADA ERIC T, Unavailable Unavailable [facility] Purpose Continuity of Care Document - 05-29-2008 through 2016 Problems Code Diagnosis DOS Provider Status 58233 DIAB W/O 06-23-2008 ST COMP TYPE [facility] II/UNS NOT MEDICALCENT STATED ER UNCNTRL 79819 PAIN IN 06-23-2008 ST JOINT, [facility] LOWER [...] [facility] USE OF MEDICALCENT OTHER ER MEDICATIONS 82629 [facility] OF 06-07-2008 [facility] Procedures Procedure DOS Code Location Performer Comment [id number] PHM WITH 8 NEEDLE STERILE 1 CC OR LESS EACH Encounters Encounter Start End Date Code Location Performer Type Date EMERGENCY 01617 8 8 [facility] JACOMEMEN T VISIT MEDICALCE MODERATE NTER SEVERITY EMERGENCY 38979 [facility] 8 [facility] T VISIT HIGH/URGE NT SEVERITY [facility] - 8 8 [facility] [place] [facility]ICAL[facility] NTER EMERGENCY [address] [facility] 8 8 [facility] T VISIT HIGH/URGE NT SEVERITY
--- OUTSIDE RECORDS SUMMARY | 2017-04-13 15:50 | External Medical Summary Rpt | CCD ---
Author Author , SRIRAM BHATIA Address Unknown Phone [email or web address] Care Team Providers Care Residential Sales Associate Name Role Phone AVE PHM, AVE PHM Unavailable Unavailable KEVON MONCADA, Unavailable Unavailable KEVON MONCADA ERIC T, Unavailable Unavailable [facility] Purpose Continuity of Care Document - 05-29-2008 through 2016 Problems Code Diagnosis DOS Provider Status 28612 DIAB W/O 06-23-2008 ST COMP TYPE [facility] II/UNS NOT MEDICALCENT STATED ER UNCNTRL 59762 PAIN IN 06-23-2008 ST JOINT, [facility] LOWER [...] [facility] USE OF MEDICALCENT OTHER ER MEDICATIONS 81498 [facility] 06-07-2008 [facility] Procedures Procedure DOS Code Location Performer Comment [address] PHM WITH 8 NEEDLE STERILE 1 CC OR LESS EACH Encounters Encounter Start End Date Code Location Performer Type Date EMERGENCY 31199 8 8 [facility] JACOMEMEN T VISIT MEDICALCE MODERATE NTER SEVERITY EMERGENCY 09479 [facility] 8 [facility] T VISIT HIGH/URGE NT SEVERITY [facility] ST - 8 8 [facility] [place] MEDICAL[facility] NTER EMERGENCY [address] [facility] 8 8 [place] [facility] T VISIT HIGH/URGE NT SEVERITY
[2017-04-13 15:56] LABS: LYMPH # 2.1 K/mm3 (0.7-4.5); LYMPH % 40.5 % (10-50.0)
[2017-04-13 16:08] LABS: HEMOGLOBIN 13.2 g/dL (12.2-16.2)
--- NOTE | 2017-04-13 16:28 | RADIOLOGY REPORT PS360 ---
CHEST-PORTABLE HISTORY: Chest pain Hyperglycemia elev BS ORDERING PHYSICIAN: Jt Rodriguez MD PATIENT AGE: 66 years COMPARISON: None available FINDINGS: There is dense calcification of the mitral valve annulus. There has been a prior CABG. Normal heart size. Lungs are clear bilaterally. No acute bony findings. IMPRESSION: 1. No change with no acute finding. 2. Calcification of the mitral valve annulus
[2017-04-13 19:57] VITALS: BP 130/80
[2017-04-19] MEDS ORDERED: METFORMIN500 MG PO (00:19)
[2017-04-19] MEDS ORDERED: ESCITALOPRAM 2020 MG PO (02:16)
[2017-04-19] MEDS ORDERED: TIZANIDINE HCL 44 MG NG (02:17)
== END 2017-04-13 20:05 ==
LOC: ER 15:33
PROVIDERS: Emergency Medicine
DX: E11.65 Type 2 diabetes mellitus with hyperglycemia (principal); T38.3X6A Underdosing of insulin and oral hypoglycemic [antidiabetic] drugs, initial encounter; Y92.9 Unspecified place or not applicable; R45.851 Suicidal ideations; I25.10 Atherosclerotic heart disease of native coronary artery without angina pectoris; I10 Essential (primary) hypertension; L98.499 Non-pressure chronic ulcer of skin of other sites with unspecified severity; E11.622 Type 2 diabetes mellitus with other skin ulcer; J44.9 Chronic obstructive pulmonary disease, unspecified; Z79.82 Long term (current) use of aspirin; Z79.4 Long term (current) use of insulin; Z91.138 Patient's unintentional underdosing of medication regimen for other reason; Z79.899 Other long term (current) drug therapy